=== PATIENT | female | born 1935 | race Caucasian/White ===

== ENCOUNTER 2021-05-21 10:27 | Emergency (ER) | payer MEDICARE, SELFPAY ==
[2021-05-21 10:36] VITALS: BP 129/53; PULSE 101; RESP 20; TEMP 36.9; O2SAT 99
--- NOTE | 2021-05-21 10:48 | ED.SKABFB ---
HPI - Skin/Abscess/Foreign Bdy General Chief complaint: Skin/Abscess/Foreign Body Stated complaint: Rash Time Seen by Provider: 05/21/21 10:50 Source: patient, RN notes reviewed and old records reviewed Mode of arrival: ambulatory Limitations: no limitations History of Present Illness HPI narrative: 85-year-old female who presents to [facility] with 2 weeks duration of rash to arms legs stomach and neck which is severely itching. Patient has used triamcinolone cream to rash for the past 1 week duration with no improvement. Patient denies any new foods any new medications new lotions laundry detergent has not been in the yard working. Patient does take lisinopril denies any difficulty with swallowing or any difficulty with breathing. Rash noted to be be pink raised irregular itchyl with no exudate noted. MD complaint: rash Onset (ago): week(s) (2) Treatments prior to arrival: OTC topical medication Related Data Home Medications Medication Instructions Recorded Confirmed alprazolam 0.25 mg PO HS PRN 05/21/21 05/21/21 cholecalciferol (vitamin D3) 125 mcg PO DAILY 05/21/21 05/21/21 duloxetine 30 mg PO DAILY 05/21/21 05/21/21 lisinopril-hydrochlorothiazide 20 tablet PO DAILY 05/21/21 05/21/21 pravastatin 10 mg PO DAILY 05/21/21 05/21/21 spironolactone 25 mg PO DAILY 05/21/21 05/21/21 Allergies Allergy/AdvReac Type Severity Reaction Status Date / Time No Known Allergies Allergy Unverified 11/15/18 10:05 Review of Systems Review of Systems: CONSTITUTIONAL: Denies fever, chills, or sweats. EYES: Denies visual changes, redness, or discharge. ENT: Denies rhinorrhea, congestion, sore throat, or otalgia. CARDIOVASCULAR: Denies chest pain, palpitations, or edema. RESPIRATORY: Denies cough or dyspnea. GASTROINTESTINAL: Denies abdominal pain, nausea, vomiting, or diarrhea. GENITOURINARY: Denies dysuria or hematuria. SKIN: Positive for rash or itching. MUSCULOSKELETAL: Denies back pain, joint pain, or myalgia. NEUROLOGIC: Denies headache, numbness, or weakness. PSYCHIATRIC: Denies anxiety or depression. All systems reviewed & are unremarkable except as noted in HPI and below PMFSH Past Medical History Medical History (Updated 05/25/21 @ 15:52 by Rosa Garner NP) Cataracts, bilateral Elevated serum cholesterol Fibromyalgia GERD (gastroesophageal reflux disease) Hypertension UTI (urinary tract infection) Surgical History Surgical History (Updated 05/25/21 @ 15:50 by Rosa Garner NP) History of bladder surgery sling History of hysterectomy S/P foot surgery, right Family History Family History (Updated 05/25/21 @ 15:51 by Rosa Garner NP) Father Lung cancer Sibling Lung cancer Mother Kidney failure Social History Social History (Updated 05/25/21 @ 15:52 by Rosa Garner NP) Smoking status: Never smoker Alcohol intake: never Substance use: never Living arrangements: with family Gender identity (if verbalized by the patient): Female Comments At time of signature, agree with nursing past medical, surgical, social and family history. There is no relevant family history pertinent to the presenting complaint Exam Narrative: GENERAL: Well-appearing, well-nourished, and in no acute distress. HEAD: Normocephalic, atraumatic. EYES: PERRLA and EOMI. ENT: Nares clear, no rhinorrhea or epistaxis. Mucous membranes moist.TM's normal, throat pink with no lesions exudates with no tonsil enlargement NECK: Supple.no lymphadenopathy CHEST: Clear to auscultation. No respiratory distress.SAO2 99% on room air HEART: Regular rate and rhythm. No murmur heard. Normal peripheral pulses. ABDOMEN: Soft, nontender, nondistended, normal active bowel sounds. EXTREMITIES: Normal range of motion. No edema. SKIN: Warm, dry, raised pink rash irregular shaped which is itchy to arms legs,neck and stomach which is severely itchy. NEURO: No focal deficits. Alert and oriented x3. Course Vital Signs [place]
== END 2021-05-21 11:10 | disposition home or self-care (01) ==
PROVIDERS: Emergency Provider Registered Nurse; PCP Family Medicine
DX: L25.9 Unspecified contact dermatitis, unspecified cause (principal); E78.00 Pure hypercholesterolemia, unspecified; I10 Essential (primary) hypertension
CPT/HCPCS: 99213; G0463

== ENCOUNTER 2024-08-26 10:39 | Emergency (ER) | payer MEDICARE, SELFPAY ==
--- NOTE | ~2024-08-26 | XR_ITS ---
XR chest 2V 08/26/2024 11:53 Indication: Cough and rhonchi Procedure: 2 view chest Comparison: No prior studies for comparison. Findings: Large hiatal hernia. Cannot exclude gastric volvulus. Small left pleural effusion. Left bas ilar atelectasis. Heart size normal. No edema or pneumothorax. The lungs are hyperinflated which is c onsistent with, but not diagnostic of chronic obstructive pulmonary disease. There is an upper lumbar wedge compression deformity with vertebroplasty change. Impression: 1: Large hiatal hernia. Cannot exclude gastric volvulus. 2: Small left pleural effusion with atelectasis of the left lung base. Reviewed, dictated and finalized at location L. TECH Impression: 1: Large hiatal hernia. Cannot exclude gastric volvulus. 2: Small left pleural effusion with atelectasis of the left lung base.
[2024-08-26 10:46] VITALS: BP 157/49; PULSE 125; RESP 28; TEMP 38.8; O2SAT 96
--- NOTE | 2024-08-26 10:53 | ED_ITS ---
HPI - URI/Sore Throat General Chief Complaint: Upper Respiratory Infection Stated Complaint: Sore Throat/Chest Congestion Time Seen by Provider: 08/26/24 10:40 Source: patient Mode of arrival: ambulatory Limitations: no limitations History of Present Illness HPI Narrative: Patient is a 88-year-old female who presents with cough for 2 days it worsens this morning, congestion, fatigue, fever. Patient also vomited 2 nights ago. Has taken 500 mg of Tylenol twice. Has not taken anything else for symptoms. States she has been relatively healthy. Patient does live alone but does have caregiver come check on her. Related Data Home Medications ?Medication ?Instructions ?Recorded ?Confirmed ?Last Taken ?Type alprazolam 0.25 mg tablet 0.25 mg PO HS PRN Anxiety 05/21/21 05/21/21 Unknown History cholecalciferol (vitamin D3) 125 125 mcg PO DAILY 05/21/21 05/21/21 Unknown History mcg (5,000 unit) capsule duloxetine 30 mg capsule,delayed 30 mg PO DAILY 05/21/21 05/21/21 Unknown History release lisinopril 20 20 tablet PO DAILY 05/21/21 05/21/21 Unknown History mg-hydrochlorothiazide 12.5 mg tablet pravastatin 10 mg tablet 10 mg PO DAILY 05/21/21 05/21/21 Unknown History spironolactone 25 mg tablet 25 mg PO DAILY 05/21/21 05/21/21 Unknown History Allergies Allergy/AdvReac Type Severity Reaction Status Date / Time No Known Allergies Allergy Unverified 11/15/18 10:05 Review of Systems Review of Systems: All systems reviewed & are unremarkable except as noted in HPI and below Constitutional: Constitutional: Denies chills, Reports fatigue, Reports fever(s), Denies headache(s), Denies malaise and Denies weakness Eyes: Eyes: Denies blurry vision, Denies itchy eyes and Denies loss of vision ENT: Denies otalgia, Denies headache(s), Reports nasal congestion, Denies sinus pain and Denies sore throat Cardiovascular: Cardiovascular: Denies chest pain, Denies irregular heart rhythm and Denies dyspnea Respiratory: Respiratory: Reports chest congestion, Reports cough and Denies dyspnea Gastrointestinal: Gastrointestinal: Denies abdominal pain, Denies diarrhea, Denies nausea and Denies vomiting Musculoskeletal: Musculoskeletal: Denies back pain, Denies myalgias and Denies arthralgias Integumentary/Breasts: Skin/Breast: Denies pruritus and Denies rash Neurologic: Denies headache(s), Denies loss of vision and Denies weakness Psychiatric: Psychiatric: Reports no additional psychiatric complaints Endocrine: Endocrine: Denies fatigue Allergic/Immunologic: Allergic/Immunologic: Denies itchy eyes PMFSH Past Medical History Medical History Cataracts, bilateral Fibromyalgia GERD (gastroesophageal reflux disease) UTI (urinary tract infection) Hypertension Elevated serum cholesterol Surgical History Surgical History S/P foot surgery, right History of hysterectomy History of bladder surgery sling Family History Family History Father Lung cancer Sibling Lung cancer Mother Kidney failure Social History Social History Smoking status: Never smoker Alcohol intake: never Substance use: never Living arrangements: with family Gender identity (if verbalized by the patient): Female Comments At time of signature, agree with nursing past medical, surgical, social and family history. There is no relevant family history pertinent to the presenting complaint. Exam Const: General: cooperative, healthy appearing, comfortable, no acute distress and well nourished Nutritional Appearance: well nourished Orientation/consciousness: patient oriented x3 Limitations: no limitations HENMT: Head: normal to inspection, normocephalic and atraumatic Ears: hea ring grossly normal bilaterally, external ears normal, TM's normal bilaterally, EAC's normal and no periauricular adenopathy Face/Nose/Sinus: Normal external nose present, Abnormal mucous membranes and turbinates present erythematous bilateral and diffuse, normal facial exam, sinuses nontender and face symmetric Face and sinus: normal facial exam, sinuses nontender and face symmetric Mouth: Yes Normal oral and palatal mucosa present, Yes lip normal, Yes tongue normal, Yes Normal salivary glands and ducts present, Yes oropharynx normal and Yes moist mucous membranes Teeth and gingiva: dentition normal Throat: posterior oropharynx normal, tonsils normal and uvula midline Eyes: General: appearance normal, both eyes and all related structures Alignment and Position: alignment normal and position normal Periorbital: periorbital findings normal Eyelids: eyelids normal Pupils: Equal, round and reactive pupils present Neck: Neck: normal visual inspection, full ROM, no lymphadenopathy and supple Chest: Chest palpation & inspection: normal inspection of the chest and normal palpation of entire chest wall Resp: Effort & Inspection: normal respiratory effort, able to speak in complete sentences and tachypneic Auscultation: no crackles, no rales, rhonchi throughout and no wheezes Cardio: Rate: tachycardic Rhythm: regular rhythm Heart sounds: S1 normal heart sound present and S2 normal heart sound present GI: Inspection: normal to inspection Skin: General skin exam: normal color and no rashes or lesions noted Neuro: General: patient oriented x3 and moves all extremities Cranial nerves: Yes Equal, round and reactive pupils present Speech: normal speech Gait exam (Neuro): Normal gait present Extrem: General: normal to inspection, full ROM and no edema Psych: Appearance: grossly normal and well kempt Mental Status: mental status grossly normal Speech and movement: Normal speech and movement present Affect: normal affect Attitude: cooperative Thought process: Normal thought process present Course Course Emergency Course: Discharge instructions reviewed with patient, as well as provided in writing per nursing staff. The instructions also include specific and strict return/GO TO THE ER as well as f/u information. All questions have been answered, and the patient deny any further questions with discharge and discharge plan. Portions of this record may have been created with voice recognition software Level of Care: Express Care Visit Vital Signs Vital signs: Vital Signs Temperature 38.8 C H 08/26/24 10:46 Pulse Rate 125 H 08/26/24 10:46 Respiratory Rate 28 H 08/26/24 10:46 Blood Pressure 157/49 H 08/26/24 10:46 Pulse Oximetry 96 08/26/24 10:46 Oxygen Delivery Room Air 08/26/24 10:46 Temperature 37.8 C H 08/26/24 12:44 Pulse Rate 120 H 08/26/24 12:25 Respiratory Rate 18 08/26/24 12:25 Blood Pressure 116/48 L 08/26/24 12:25 Pulse Oximetry 94 08/26/24 12:25 Oxygen Delivery Room Air 08/26/24 12:25 Reviewed MDM - URI/Sore Throat MDM Narrative Medical decision making narrative: Discussed COVID findings with patient and son. Patient has audible mucous congestion sounds in airway. Given 1000 mg of tylenol and a breathing treatment. Patient states she feels much better after breathing treatment, though rhonchi did not improve. Patient was no longer tachypneic and temperature has come down while being observed. X-ray shows no signs of pneumonia. Discussed possible transfer to hospital for observation. Patient is adamant she does not want to go to the emergency department and wants to try treating fever at home and start antiviral medication. Patient is able to maintain a 94 % oxygen and is not actively coughing. Discussed the importance of alternating Tylenol and ibuprofen to keep fever down. Patient states that she has any increased shortness of breath she will go to the emergency department. Son is going to stay with patient for the next 24 hours to monitor and will ensure she goes to the ED if symptoms are worsening. Pt well hydrated appearing, in no respiratory distress, hemodynamically stable. Recommend supportive care. The patient is stable at time of discharge the clinical impression was discussed and the patient was given the opportunity to ask questions, which were addressed as completely as possible given the information available at present. Anticipatory guidance and return to care precautions were discussed and the importance of primary care follow-up was stressed and encouraged. The patient voiced understanding of the plan, indications to return, and the need for follow-up. Differential diagnosis considered: Bronchitis, Polanco virus, strep pharyngitis, allergic rhinitis, upper respiratory tract infection, sinusitis, rhinosinusitis, nasopharyngitis. viral pharyngitis, otitis media, otitis externa, otitis effusion, foreign body, cerumen impaction, viral syndrome, and influenza.? Exam findings show no acute concerns or changes; patient is non-toxic appearing and is in no distress.? Patient is appropriate for outpatient treatment and follow- up.? Medical Records Attestation: I reviewed the patient's medical records. Lab Data Attestation: I reviewed the patient's lab results. Labs: Lab Results 08/26/24 Range/Units 11:04 POC Influenza A Ag Negative (Negative) POC Influenza B Ag Negative (Negative) POC SARS CoV-2 Ag Positive (Negative) Imaging Data Radiologist's impression: XR chest 2V 08/26/2024 11:53 Indication: Cough and rhonchi Procedure: 2 view chest Comparison: No prior studies for comparison. Findings: Large hiatal hernia. Cannot exclude gastric volvulus. Small left pleural effusion. Left basilar atelectasis. Heart size normal. No edema or pneumothorax. The lungs are hyperinflated which is consistent with, but not diagnostic of chronic obstructive pulmonary disease. There is an upper lumbar wedge compression deformity with vertebroplasty change. Impression: 1: Large hiatal hernia. Cannot exclude gastric volvulus. 2: Small left pleural effusion with atelectasis of the left lung base. Discharge Plan Discharge Clinical Impression: COVID Patient Disposition: Home, Self-Care Condition: Stable Instructions: COVID-19 (Coronavirus Disease 2019) (ED) Additional Instructions: Your rapid COVID test was positive today. The following recommendations have been made by the CDC and local Health Departments, regarding COVID-19: -wear a mask for 5 days, as long as your fever free for 24 hours you could return to work -Majority of mild to moderate cases can be treated at home, without hospi talization or prescription medications You do not need a negative test result to return to work/school, assuming the above recommendations have been met and you are not symptomatic. Treating symptoms for mild to moderate cases may include: -Alternate Tylenol and Motrin per package directions for fever or pain. -Antihistamine medication such as Benadryl/Zyrtec at night and Claritin/Wanda during the day can help improve symptoms. -Use Flonase twice a day for 5 days then daily to help reduce the inflammation and dry up your sinuses. -You can also use Sudafed behind the pharmacy counter(12 or 24 hour). Be sure to drink plenty of water with these medications at least 8 ounces with every dose and it is important to drink 8 to 10 glasses of water per day. Water is a natural decongestant Take Motrin alternating with Tylenol for pain and fever alternating every 3 hours. 8 AM: Tylenol 11 AM: Ibuprofen 2 PM: Tylenol 5 PM: Ibuprofen 8 PM: Tylenol 11 PM: Ibuprofen 2 AM: Tylenol 5 AM: Ibuprofen Common Adult Symptoms: Fever/chills Cough Shortness of breath Fatigue, muscle aches Headache Loss of taste/smell Sore throat, congestion, runny nose GI symptoms (nausea, vomiting, diarrhea) Common Pediatric Symptoms Cough Fever GI symptoms (diarrhea, upset stomach, nausea, vomiting) Symptoms may differ in severity however, most cases do not require hospitalization. WHEN TO SEEK ER EVALUATION/TREATMENT: Severe/persistent shortness of breath or difficulty breathing Elevated, persistent fevers without resolution with fever-reducing medications Chest pain Extreme fatigue/lethargy Complications of pre-existing disease Patient Language: Stateless Prescriptions: New (DME) Aerochamber MV Spacer See Rx Instructions .Route Qty: 1 0RF Rx Instructions: As directed albuterol sulfate 90 mcg/actuation HFA aerosol inhaler 2 puff inhalation QID PRN (Reason: shortness of breath or wheezing) Qty: 6.7 0RF Paxlovid 300 mg (150 mg x 2)-100 mg tablets,dose pack See Rx Instructions .ROUTE .COMPLEX Qty: 30 0RF Rx Instructions: take TWO 150 mg tablets of nirmatrelvir with ONE 100 mg tablet of ritonavir twice daily for 5 days No Action alprazolam 0.25 mg tablet 0.25 mg PO HS PRN (Reason: Anxiety) lisinopril-hydrochlorothiazide 20-12.5 mg tablet 20 tablet PO DAILY spironolactone 25 mg tablet 25 mg PO DAILY pravastatin 10 mg tablet 10 mg PO DAILY cholecalciferol (vitamin D3) 125 mcg (5,000 unit) capsule 125 mcg PO DAILY duloxetine 30 mg capsule,delayed release(DR/EC) 30 mg PO DAILY triamcinolone acetonide 0.1 % ointment 1 applic topical BID Qty: 80 0RF Rx Instructions: BID for up to 2 weeks total prednisone 10 mg tablet 10 mg PO DAILY Qty: 42 0RF Rx Instructions: 6 tabs for 2 days then 5 tabs for day 2, then 4 tabs for 2 days, 3 tabs for 2 days, 2 tabs day 2, 1 tab day2 Follow-up/Referrals: Beto,Bobby Davila MD [Primary Care Provider] - 3 Days Time of Disposition: 12:26
[2024-08-26 11:05] LABS: EDCOVIDSCREEN Positive (Negative); EDINFLUASCREEN Negative (Negative); EDINFLUBSCREEN Negative (Negative)
--- OUTSIDE RECORDS SUMMARY | 2024-08-26 11:15 | XMS_ITS | Clinical Summary ---
Author Organization [facility] Address [address] [place] [address] Care Team Providers Care Electrical Logger Name Role Phone Alonzo Francois MD Primary Care Provider [phone] Social History Tobacco Use Types Packs/Day Years Used Date Smoking Tobacco: Never Assessed Comments Unknown Sex and Gender Information Value Date Recorded Sex Assigned at Not on file Legal Sex Female 2:39 PM CDT Gender Identity Not on file Sexual Orientation Not on file Plan of Treatment Health Maintenance Due Date Last Done Comments DEXA Bone Density 1935 Hepatitis C Virus (HCV) Screening 1935 TdaP Immunization 1935 Respiratory Syncytial Virus (RSV) Immunization (Adult) (1 - 1-dose 75+ series) 09/08/2010 Zoster Immunization (2 of 3) 11/29/2012 10/04/2012 Influenza Immunization (#1) 03/06/202403/06, 03/30/2020, 03/30/2020, Additional history exists SARS-COV-2 Immunization ( season) 2024 07/11/2021, 09/26/2020, 09/02/2020 DTaP/Tdap/Td Immunization Discontinued 06/06/2008 Pneumococcal Immunization (50+ years) Completed 05/03/2014, 10/04/2012 Hepatitis B Immunization Aged Out No longer eligible based on patient's age to complete this topic Meningococcal Immunization (ACWY) Aged Out No longer eligible based on patient's age to complete this topic Rotavirus Immunization Aged Out No lo nger eligible based on patient's age to complete this topic Insurance MEDICARE [facility] Care Teams Electrical Logger Relationship Specialty Start Date End Date [place] [address] PCP - General Internal Medicine 05/09/22
--- OUTSIDE RECORDS SUMMARY | 2024-08-26 11:16 | XMS_ITS | Encounter Summary ---
Author Organization [facility] Address [address] [place] [address] Care Team Providers Care Well Servicing Rig Operator Name Role Phone Luther Pérez MD Primary Care Provider + Luther Pérez MD Primary Care Provider + Luther Pérez MD Primary Care Provider + Alonzo Francois MD Primary Care Provider [phone] Luther Pérez MD Primary Care Provider + Alonzo Francois MD Primary Care Provider [phone] Luther Pérez MD Primary Care Provider + Encounter Details Date Type Department Care Team (Late st Contact Info) Description 08/03/2013 Orders Only [facility] Health Information Management [address] [place] [address] Scanning, Provider Social History Tobacco Use Types Packs/Day Years Used Date Smoking Tobacco: Never Alcohol Use Standard Drinks/Week Comments No 0 (1 standard drink = 0.6 oz pur e alcohol) Comments Unknown Sex and Gender Information Value Date Recorded Sex Assigned at Not on file 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 Gender Identity Not on file Sexual Orientation Not on file documented as of this encounter Plan of Treatment Not on file documented as of this encounter Procedures Procedure Name Priority Date/Time Associated Diagnosis Comments GI - RESULT 08/03/2013 SCAN - PATHOLOGY 08/03/2013 documented in this encounter Results * SCAN - PATHOLOGY (08/03/2013) us Provider Scanning Edited Result - Final * GI - RESULT (08/03/2013) Anatomical Region Laterality Modality Other us Provider Scanning Edited Result - Final documented in this encounter Visit Diagnoses Not on filedocumented in this encounter Additional Health Concerns Infection Onset Date Last Indicated Resolved Time COVID: Suspected 12/31/2021 12/31/2021 12/31/2021 4:25 PM CDT MDR gram neg/ESBL Comment:ESBL E.coli urine 01/08/23 01/08/2023 01/08/2023 documented as of this encounter Care Teams Well Servicing Rig Operator Relationship Specialty Start Date End Date Luther Pérez MD [address] [place] [address] PCP - General 10/03/16 03/21/19 Luther Pérez MD [address] [place] [address] [place] [address] PCP - General 09/19/16 10/02/16 Luther Pérez MD [address] [place] [address] [place] [address] PCP - General 04/22/13 09/18/16 Al[place] [address] PCP - General Family Medicine 03/22/19 08/22/22 Luther Pérez MD [address] [place] [address] [place] [address] PCP - General Internal Medicine 08/23/22 09/15/22 Alonzo Francois MD [address] [place] [address] PCP - General Family Medicine 09/16/22 05/19/24 Luther Pérez MD [address] [place] [address] PCP - General Internal Medicine 05/20/24 documented as of this encounter
--- OUTSIDE RECORDS SUMMARY | 2024-08-26 11:16 | XMS_ITS | Referral Summary ---
Author Organization [facility] Address [address] [place] [address] Care Team Providers Care Loan Reviewer Name Role Phone Luther Pérez MD Primary Care Provider + Encounters Date Type Department Care Team Description 06/09/2024 11:45 AM ENOLOGIST Office Visit [facility] Orthopedics and Sports Medicine [address] [facility] [address] [place] [address] Anai Ureña PA Trochanteric bursitis of both hips (Primary Dx) from Last 3 Months Allergies Active Allergy Reactions Criticality Noted Date Comments Erythromycin Other (See comments) Low 08/11/2013 Liver toxicity Reaction: Liver toxicity, , Reaction: Liver toxicity, , Reaction: drug-induced hepatitis, , Ilosone Other (See comments) Low 06/07/2019 Drug induced hepatitis Oxybutynin Nausea Only Low 08/11/2013 Liver toxicity Oxybutynin Chloride Unknown Medications cholecalciferol (VITAMIN D-3) 5,000 unit capsuleIndications :Vitamin D deficiency TAKE ONE CAPSULE BY MOUTH DAILY 90 capsule 1 1 Active pravastatin (PRAVACHOL) 10 mg tabletIndications: Mixed hyperlipidemia TAKE 1 TABLET(10 MG) BY MOUTH DAILY 90 tablet 3 2 Active B2/B6 phos/levomef rachna/mecobal (EB-N3 DR ORAL) Take by mouth Active spironolactone (ALDACTONE) 25 mg tabletIndications: Benign hypertension TAKE 1 TABLET(25 MG) BY MOUTH DAILY 90 tablet 3 2 Active cyanocobalamin (Vitamin B-12) 1,000 mcg/mL injectionIndicatio ns:Other vitamin B12 deficiency anemia ADMINISTER 1 ML(1000 MCG) IN THE MUSCLE EVERY 30 DAYS DIRECTED 1 mL 2 2 Active lisinopril-hydroCH LOROthiazide (ZESTORETIC) 20-12.5 mg per tabletIndications: Benign hypertension TAKE 1 TABLET BY MOUTH DAILY 90 tablet 2 Active ALPRAZolam (XANAX) 0.25 mg tabletIndications: Anxiety state TAKE 1 TABLET BY MOUTH EVERY NIGHT NEEDED FOR ANXIETY OR SLEEP 30 tablet 1 3 Active cyclobenzaprine (FLEXERIL) 5 mg tablet 3 Active clobetasoL (TEMOVATE) 0.05 % ointmentIndication s:Vaginal itching Apply topically 2 (two) times a day 30 g 3 Active omeprazole (PriLOSEC) 40 mg capsule TAKE 1 CAPSULE(40 MG) BY MOUTH DAILY 90 capsule 1 4 Active dicyclomine (BENTYL) 20 mg tablet Take one pill up to 3 times daily as needed for abdominal pain and/or cramping. 90 tablet 4 Active Hospital, Clinic, or Other Facility Administered Medication Ordered Dose Route Frequency Start Date End Date Status cyanocobalamin (Vitamin B-12) injection 1,000 mcgIndications:B12 deficiency 1000 mcg IM Every 30 days 05/15/2020 Active cyanocobalamin (Vitamin B-12) injection 1,000 mcgIndications:Vitamin B12 deficiency 1000 mcg IM Every 30 days 11/28/2021 Active cyanocobalamin (Vitamin B-12) injection 1,000 mcgIndications:Vitamin B12 deficiency 1000 mcg IM Every 30 days 02/17/2022 Active cyanocobalamin (Vitamin B-12) injection 1,000 mcgIndications:Vitamin B12 deficiency 1000 mcg IM Every 30 days 03/17/2022 Active cyanocobalamin (Vitamin B-12) injection 1,000 mcgIndications:Vitamin B12 deficiency 1000 mcg IM Every 30 days 06/18/2022 Active cyanocobalamin (Vitamin B-12) injection 1,000 mcgIndications:Vitamin B12 deficiency 1000 mcg IM Every 30 days 07/22/2022 Active Active Problems Problem Noted Date Diagnosed Date Lower abdominal pain 05/20/2024 Trochanteric bursitis of both hips 12/29/2022 Gastroesophageal reflux disease without esophagi tis 10/13/2022 Trochanteric bursitis of right hip 08/30/2019 Ray's esophagus without dysplasia 06/23/2019 Assessment & Plan (06/23/2019 10:05 AM ENOLOGIST): Last EGD showed small segment Ray's without dysplasia. Spoke with Dr. Caal who says there is now need for f/u due to age and biopsy results. Will continue on Nexium 40mg daily. Irritable bowel syndrome with constipation 03/24 Assessment & Plan (06/23/2019 10:03 AM ENOLOGIST): Patient doing well with fiber gummies. No abdominal pain and having softer stools daily. Continue fiber gummies. Assessment & Plan (03/24/2019 9:13 AM CDT): Has tried Metamucil which causes gas and Miralax causes diarrhea. Will have her try a different kind of fiber (fiber gummies) and slowly increase to recommended dose so body can adjust to more fiber intake. Hiatal hernia 01/17/2019 Assessment & Plan (06/23/2019 10:06 AM ENOLOGIST): Large hiatal hernia. Pt well controlled on Nexium and current diet. Assessment & Plan (03/24/2019 9:13 AM CDT): Large hiatal hernia. Pt is doing well with following GERD diet, taking omeprazole, and eating small meals. Continue this. Assessment & Plan (01/17/2019 4:55 PM CDT): This letter is likely at to her acid reflux disease and symptoms of regurgitation. Considering her her age will continue to maintain and attempt conservative treatment. Dysphagia 01/13/2019 Overview (01/13/2019): Added automatically from request for surgery [id number] Assessment & Plan (06/23/2019 10:05 AM ENOLOGIST): Pt says dysphagia is about the same. Had EGD with dilation several months ago without improvement. Esophagram showed spasms in esophagus. Pt says she sticks with softer foods and eats slowly which helps. We discussed possibly doing EGD with dilation since there was some evidence of narrowing. Pt said she would like to hold off. She will consider if sx worsen. Continue soft foods. Assessment & Plan (03/24/2019 9:14 AM CDT): No issues as long as she eats softer foods and eats slowly. Discussed possible future need for dilation if symptoms worsen. Pt says she will let us know if things get worse. Assessment & Plan (02/23/2019 5:01 PM CDT): Patient is still symptoms. Will the patient again in 1 month and if continue to have symptoms then we will schedule repeat dilatation. I suspect the patient has the upper esophageal sphincter dysfunction and high pressure. Meanwhile will get barium swallow. Assessment & Plan (01/17/2019 4:54 PM CDT): Schedule EGD for further evaluation. Follow-up in 1 month. Will also schedule the barium swallow to evaluate her hiatal hernia of effect on GI motility. Acute cystitis with hematuria 04/27/2017 Assessment & Plan (04/27/2017 10:20 AM CDT): Increasing fluid intake was recommended. Patient was instructed to take antibiotic as directed. Patient was encouraged to take antibiotic with food. I have also recommended daily probiotic, yogurt or capsule, while on the antibiotic. Urine sample will be submitted to the lab for urinalysis with reflex to microscopy and culture. Patient should anticipate a call from me regarding urine culture results within 3 days of having testing completed. Patient has been instructed to contact the office if they have not heard from me with results within this time frame. Healthcare maintenance 01/29/2017 Medication management 01/29/2017 Bipolar 1 disorder with moderate deepak ([facility]) 01/29/2017 Gastroesophageal reflux disease with esophagitis 01/17/2014 Overview (10/11/2016): ULC ESOPHAGUS W/O BLEED Assessment & Plan (06/23/2019 10:04 AM ENOLOGIST): Well controlled on Nexium 40mg daily. Occasional breakthrough symptoms but patient says she takes TUMS and helps relieve this. Continue current regimen. Assessment & Plan (03/24/2019 9:14 AM CDT): On omeprazole daily and well controlled. Assessment & Plan (02/23/2019 4:59 PM CDT): Reflux symptoms controlled with Nexium so will continue the same. Assessment & Plan (01/17/2019 4:56 PM CDT): She remains symptomatic despite taking [id number] Nexium. Will start full dose Nexium prescription daily and follow-up progress in 1 month after the endoscopy. Vitamin D deficiency 11/19/2013 Overview (10/08/2016): VITAMIN D DEFICIENCY NOS Disorder of peripheral nervous system 11/19/2013 Overview (10/09/2016): Peripheral neuropathy Anxiety state 11/19/2013 Overview (10/09/2016): ANXIETY STATE NOS Assessment & Plan (01/16/2017 4:45 PM CDT): Continue to see Psychiatry for condition as they can manage the medications around if this was induced by the Seroquel at that of a common side effect. Will follow up patient here in 2 weeks as already scheduled Continue with Celexa and alprazolam as previously prescribed as well Benign hypertension 11/19/2013 Overview (10/09/2016): BENIGN HYPERTENSION Generalized osteoarthritis 11/19/2013 Overview (10/09/2016): GENERAL OSTEOARTHROSIS Stress incontinence in female 07/11/2010 Overview (10/15/2017): Description: S/P sling 1999, & 2000 Abnormal mammogram 01/24/2009 Immunizations Immunization Administration Dates Next Due Influenza, Quadrivalent, Hig h Dose, Preservative Free, Intrr 03/17/2022,03/30/2020 Influenza, Quadrivalent, Spl it, Preservative Free, Intramuscular 04/13/2019 Influenza, Split 05/07/2012,04/23/2011, 0 Influenza, Trivalent, High D ose, Split, Preservative Free, Intramuscular 05/11/2018,05/10/2018,04/05/2017,05/01,04/18/2015,05/03/2014,05/09/2013 ,05/09/2013 Influenza, Trivalent, IM (MDV) 04/18/2015,2008,04/18/2008 Influenza, Unspecified 08/19/2021(Deferr ed: Patient Refused),03/06/2021(Deferred: Patient Refused),03/30/2020,04/05/2018 Pfizer SARS-CoV-2 Monovalent Vaccination (12+ Yrs) PURPLE 07/11/2021,09/26/2020 Pneumococcal Conjugate PCV 13 05/03/2014 Pneumococcal Polysaccharide PPV23 10/04/2012,07/2012 Td, adsorbed 06/06/2008 ZOSTER LIVE 10/04/2012,10/04/2012 Social History Tobacco Use Types Packs/Day Years Used Date Smoking Tobacco: Never Smokeless Tobacco: Never Tobacco Cessation:Counseling Given: Not Answered Alcohol Use Standard Drinks/Week Comments Yes 0 (1 standard drink = 0.6 oz pur e alcohol) AUDIT-C Answer Date Recorded Q1: How often do you have a drink containing alc ohol? Never 05/20/2024 Average Number of Drinks Not on file 024 Frequency of Binge Drinking Not on file 05/06 PHQ-2 Answer Date Recorded PHQ-2 Total Score (If total score is 3 or more points, staff should administer the PHQ-9) 0 03/17/2022 Comments No Sex and Gender Information Value Date Recorded Sex Assigned at Not on file Legal Sex Female 5:14 PM ENOLOGIST Gender Identity Not on file Sexual Orientation Not on file Last Filed Vital Signs Vital Sign Reading Time Taken Comments Blood Pressure 101/59 06/09/2024 11:44 AM ENOLOGIST Pulse 73 06/09/2024 11:44 AM ENOLOGIST Temperature 36.9 C (98.4 F) 02/11/2023 12:08 PM CDT Respiratory Rate 16 02/11/2023 12:08 PM CDT Oxygen Saturation 99% 05/20/2024 11:57 AM ENOLOGIST Inhaled Oxygen Concentration - - Weight 47 kg (103 lb 9.6 oz) 06/09/2024 11:44 AM ENOLOGIST Height 154.9 cm (5' 1 ) 06/09/2024 11:44 AM ENOLOGIST Body Mass Index 19.58 06/09/2024 11:44 AM ENOLOGIST Plan of Treatment Not on file Procedures Procedure Name Priority Date/Time Associated Diagnosis Comments MI ARTHROCENTESIS ASPIR&/INJ MAJOR JT/BURSA W/O US Routine 06/09/2024 11:45 AM ENOLOGIST Trochanteric bursitis of both hips MI ARTHROCENTESIS ASPIR&/INJ MAJOR JT/BURSA W/O US Routine 06/09/2024 11:45 AM ENOLOGIST Trochanteric bursitis of both hips FIT OCCULT BLOOD, FECAL Routine 10/19/2022 6:00 AM CDT Bilateral lower abdominal cramping Flatulence Bloating SCREENING MAMMOGRAM BILATERAL W SMITA Schedule Routine, Read Routine (OP Routine) 09/01/2022 1:59 PM ENOLOGIST Encounter for screening mammogram for malignant neoplasm of breast HM COLONOSCOPY Routine 07/16/2010 from Last 3 Months or Most Recently Relevant to Health Maintenance Results * MI ARTHROCENTESIS ASPIR&/INJ MAJOR JT/BURSA W/O US (06/09/2024 11:45 AM ENOLOGIST) Narrative Gian Soriano MD - 06/09/2024 11:45 AM ENOLOGIST Anai Ureña PA 06/09/2024 1:07 PM Greater trochanteric bursa injection Performed by: Anai Ureña PA Authorized by: Anai Ureña PA Greater Trochanteric Bursa Injection: Consent Given by: Patient Site marked: the procedure site was marked Timeout: prior to procedure the correct patient, procedure, and site was verified Verbal consent obtained?: Yes Prior to the start of the procedure, verbal verification by the procedure participant(s) confirmed (as applicable): corect patient idenity; correct site/side marked and visible; agreement on the procedure to be done; correct patient positioning; an accurate procedure consent form, relevant images and results correctly labeled and displayed; any safety precautions based on clinical history and/or medication use have been addressed.: Supporting Documentation: Indications: Pain and therapeutic Procedure Details: Site: Left Greater Trochanteric Bursa Prep: patient was prepped and draped in usual sterile fashion Patient position: Sidelying Needle Size: 22 G Ultrasound guidance: No Approach: Lateral Medications: 80 mg methylPREDNISolone acetate 80 mg/mL; 4 mL lidocaine 20 mg/mL (2 %) Patient tolerance: Patient tolerated the procedure well with no immediate complications us Anai DONAHUE IN CLINIC/BEDSIDE ORD ERABLES Final Result * MI ARTHROCENTESIS ASPIR&/INJ MAJOR JT/BURSA W/O US (06/09/2024 11:45 AM ENOLOGIST) Gian Fajardo MD - 06/09/2024 11:45 AM ENOLOGIST Anai Ureña PA 06/09/2024 1:07 PM Greater trochanteric bursa injection Performed by: Anai Ureña PA Authorized by: Anai Ureña PA Greater Trochanteric Bursa Injection: Consent Given by: Patient Site marked: the procedure site was marked Timeout: prior to procedure the correct patient, procedure, and site was verified Verbal consent obtained?: Yes Prior to the start of the procedure, verbal verification by the procedure participant(s) confirmed (as applicable): corect patient idenity; correct site/side marked and visible; agreement on the procedure to be done; correct patient positioning; an accurate procedure consent form, relevant images and results correctly labeled and displayed; any safety precautions based on clinical history and/or medication use have been addressed.: Supporting Documentation: Indications: Pain and therapeutic Procedure Details: Site: Right Greater Trochanteric Bursa Prep: patient was prepped and draped in usual sterile fashion Patient position: Sidelying Needle Size: 22 G Ultrasound guidance: No Approach: Lateral Medications: 80 mg methylPREDNISolone acetate 80 mg/mL; 4 mL lidocaine 20 mg/mL (2 %) Patient tolerance: Patient tolerated the procedure well with no immediate complications Anai DONAHUE IN CLINIC/BEDSIDE ORD ERABLES Final Result * FIT occult blood, fecal (10/19/2022 6:00 AM CDT) FIT occult blood, fecal Negative Negative MARY NIXON ([facility]) Comment: Negative result. This test will not detect upper gastrointestinal bleeding; the HemoQuant test (7920)should be ordered if clinically indicated. Test Performed by: [place] [address] Compound Specialist: Brad Owen M.D. Ph.D.; CLIA# [id number] Collection date/time has been modified to: 06:00:00. Previous collection date/time: 06:00:00. Stool 10/19/2022 6:00 AM CDT 10/21/2022 3:40 PM CDT Nathaniel Gurrola VENDOR SPECIALIST LAB BODY FL UIDS AND STOOLS ORDERABLES Edited Result - Final [facility] ([facility]) [address] [facility] Department [place] [address] * SCREENING MAMMOGRAM BILATERAL W SMITA (09/01/2022 1:59 PM ENOLOGIST) Anatomical Region Laterality Modality Breast Bilateral Mammography 09/01/2022 3:14 PM ENOLOGIST Impressions 09/01/2022 3:14 PM ENOLOGIST There is no mammographic evidence of malignancy. A 1 year screening mammogram is recommended. BI-RADS: 1 - Negative. The patient has been or will be contacted. The patient will be entered into a reminder system with a target due date of 1 year for her next mammogram. Electronically signed by: Brad Jiménez M.D. Narrative 09/01/2022 3:14 PM ENOLOGIST EXAMINATION: SCREENING MAMMOGRAM BILATERAL W SMITA ORDERING HEALTHCARE PROVIDER: DESTINY FRANCOIS HISTORY: Routine screening mammography. COMPARISON: 08/31/2020, 05/09/2019, 05/06/2018, 04/18/2016, 03/19/2015 TECHNIQUE: CC and MLO views of the bilateral breasts were obtained with digital technique using breast tomosynthesis with C view. Computer aided detection was utilized. FINDINGS: DENSITY: There are scattered fibroglandular elements in the bilateral breasts. BREASTS: There are no suspicious masses, suspicious calcifications, or other suspicious findings in either breast. There has been no suspicious interval change. Vascular and other typically benign calcifications are present in both breasts. Destiny Francois MD IMG MAMMO PROCEDURES Lalita l Result * COLONOSCOPY (07/16/2010) Colonoscopy Abnormal Comment:Diverticulosis. Historical Provider HEALTH MAINTENANCE Final Result from Last 3 Months or Most Recently Relevant to Health Maintenance Additional Health Concerns Infection Onset Date Last Indicated MDR gram neg/ESBL Comment:ESBL E.coli urine 01/08/23 01/08/2023 01/08/2023 Insurance MEDICARE [employer] SENIOR SUPPLEMENT MEDICARE [facility] T SENIOR SUPPLEMENT [address] MEDICARE [employer] SENIOR SUPPLEMENT Advance Directives For more information, please contact: [phone] * Full Code (Latest Code Status on File) Date Activated Date Inactivated Comments 02/08/2019 7:45 AM 02/08/2019 2:06 PM * Full Code Date Activated Date Inactivated Comments 02/08/2019 7:44 AM 02/08/2019 7:45 AM Care Teams Loan Reviewer Relationship Specialty Start Date End Date Luther Pérez MD [address] [facility] [place] [address] PCP - General Internal Medicine 05/20/24
--- OUTSIDE RECORDS SUMMARY | 2024-08-26 11:16 | XMS_ITS | Clinical Summary ---
Author Organization [facility] Address [address] [place] [address] Care Team Providers Care Statistician Name Role Phone Luther Pérez MD Primary Care Provider [phone] Source Comments [facility],non-owned Affiliates and Associated Physician Practices is amultiple site organization consisting of ambulatory clinics and hospital sitesin [place], [place], [place] and [place]. This disclosure is being madepursuant to the Care Everywhere program and may not contain all information available regarding this patient. Last updated 18.[facility] Allergies Active Allergy Reactions Criticality Noted Date Comments Gabapentin 04/29/2010 Medications * Be aware that medications may not be up to date on this document. Alwaysverify current medications with the patient. Medication Sig Dispensed Refills Start Date End Date Status escitalopram (LEXAPRO) 10 MG tablet Take 10 mg by mouth daily. Active alprazolam (XANAX) 0.25 MG tablet Take 0.25 mg by mouth every 6 hours as needed. Active vitamin D, ergocalciferol, (DRISDOL) 64626 UNIT capsule Take 50,000 Units by mouth every 30 days. Active lisinopril-hydrochloro thiazide (PRINZIDE; ZESTORETIC) 20-12.5 MG tablet Take 1 Tab by mouth daily. Active fish oil/omega-3 fatty acids (OMEGA 3) 1000 MG capsule Take 1,000 mg by mouth 3 times daily with meals. Active Niacin 500 MG CPCR Take by mouth. Ac tive aspirin 81 MG tablet Take 81 mg by mouth daily. Active Omeprazole 20 MG TBEC Take 20 mg by mouth daily before breakfast. Active Active Problems Problem Noted Date Diagnosed Date OA (osteoarthritis) 04/17/2010 Overview (04/17/2010): 04/17/2010 hands Fibromyalgia 04/17/2010 Overview (04/17/2010): Long standing Fibromyalgia diagnosis insmonia Trochanteric bursitis 04/17/2010 Overview (04/17/2010): 04/17/2010 left Insomnia 04/17/2010 Social History Tobacco Use Types Packs/Day Years Used Date Smoking Tobacco: Never Alcohol Use Standard Drinks/Week Comments Yes 0 (1 standard drink = 0.6 oz pur e alcohol) occ Sex and Gender Information Value Date Recorded Sex Assigned at Not on file Gender Identity Not on file Sexual Orientation Not on file Last Filed Vital Signs Vital Sign Reading Time Taken Comments Blood Pressure 117/34 04/03/2014 12:47 PM CDT Pulse 77 04/03/2014 12:47 PM CDT Temperature 37.2 C (99 F) 04/03/2014 12:47 PM CDT Respiratory Rate 16 04/03/2014 12:47 PM CDT Oxygen Saturation 93% 04/03/2014 12:47 PM CDT Inhaled Oxygen Concentration - - Weight 61.2 kg (135 lb) 04/03/2014 8:23 AM CDT Height 158.8 cm (5' 2.5 ) 04/03/2014 8:23 AM CDT Body Mass Index 24.3 04/03/2014 8:23 AM CDT Plan of Treatment Health Maintenance Due Date Last Done Comments BONE DENSITY TESTING 1935 DTAP/TDAP/TD VACCINES (1 - Tdap) 09/08/1954 PNEUMOCOCCAL VACCINE 50+ (1 of 1 - PCV) 09/08/1985 ZOSTER VACCINE (1 of 2) 09/08/1985 Respiratory Syncytial Virus (RSV) Vaccine Pt: or over 60 yrs (1 - 1-dose 75+ series) 09/08/2010 COVID-19 VACCINE ( - 2023-2 5 season) 2024 INFLUENZA VACCINE (#1) 2024 DEPRESSION SCREENING 07/06/2024 HEPATITIS B VACCINE Aged Out No longe r eligible based on patient's age to complete this topic HIB VACCINE Aged Out No longer eligi ble based on patient's age to complete this topic HPV VACCINE Aged Out No longer eligi ble based on patient's age to complete this topic MENINGOCOCCAL (Group B) VACCINE Aged Out No longer eligible based on patient's age to complete this topic MENINGOCOCCAL VACCINE Aged Out No glenn liz eligible based on patient's age to complete this topic Care Teams Statistician Relationship Specialty Start Date End Date Luther Pérez MD PCP - General 04/17/10
--- OUTSIDE RECORDS SUMMARY | 2024-08-26 11:16 | XMS_ITS | Encounter Summary ---
Author Organization [facility] Address [address] [address] Care Team Providers Care Service Center Supervisor Name Role Phone Luther Pérez MD Primary Care Provider + Luther Pérez MD Primary Care Provider + Luther Pérez MD Primary Care Provider + Luther Pérez MD Primary Care Provider + Alonzo Francois MD Primary Care Provider [phone] Luther Pérez MD Primary Care Provider + Alonzo Francois MD Primary Care Provider [phone] Luther Pérez MD Primary Care Provider + Encounter Details Date Type Department Care Team (Late st Contact Info) Description 07/16/2010 Orders Only [facility] Health Information Management [address] [place] [address] Scanning, Provider Social History Tobacco Use Types Packs/Day Years Used Date Smoking Tobacco: Never Assessed Comments Unknown Sex and Gender Information Value Date Recorded Sex Assigned at Not on file Legal Sex Female 5:14 PM CONCRETE LABORER Gender Identity Not on file Sexual Orientation Not on file documented as of this encounter Plan of Treatment Not on file documented as of this encounter Procedures Procedure Name Priority Date/Time Associated Diagnosis Comments SCAN - PATHOLOGY 07/16/2010 documented in this encounter Results * SCAN - PATHOLOGY (07/16/2010) us Provider Scanning Edited Result - Final documented in this encounter Visit Diagnoses Not on filedocumented in this encounter Additional Health Concerns Infection Onset Date Last Indicated Resolved Time COVID: Suspected 12/31/2021 12/31/2021 12/31/2021 4:25 PM CDT MDR gram neg/ESBL Comment:ESBL E.coli urine 01/08/23 01/08/2023 01/08/2023 documented as of this encounter Care Teams Service Center Supervisor Relationship Specialty Start Date End Date Luther Pérez MD [address] [place] [address] [place] [address] PCP - General 10/03/16 03/21/19 Luther Pérez MD [address] [place] [address] [place] [address] PCP - General 09/19/16 10/02/16 Luther Pérez MD [address] [place] [address] [place] [address] PCP - General 04/22/13 09/18/16 Luther Pérez MD [address] [place] [address] [place] [address] PCP - General 07/09/07 04/21/13 Alonzo Francois MD [address] [place] [address] PCP - General Family Medicine 03/22/19 08/22/22 Luther Pérez MD [address] [place] [address] [place] [address] PCP - General Internal Medicine 08/23/22 09/15/22 Alonzo Francois MD [address] [place] [address] PCP - General Family Medicine 09/16/22 05/19/24 Luther Pérez MD [address] [facility] [place] [address] PCP - General Internal Medicine 05/20/24 documented as of this encounter
--- OUTSIDE RECORDS SUMMARY | 2024-08-26 11:16 | XMS_ITS | Referral Summary ---
Author Organization [facility] [employer] Address [address] [place] [address] Care Team Providers Care Jewel Gauger Name Role Phone Luther Pérez MD Primary Care Provider [phone] Source Comments [facility],non-owned Affiliates and Associated Physician Practices is amultiple site organization consisting of ambulatory clinics and hospital sitesin [place], [place], [place] and [place]. This disclosure is being madepursuant to the Care Everywhere program and may not contain all information available regarding this patient. Last updated 18.[facility] [employer] Allergies Active Allergy Reactions Criticality Noted Date [...] as needed. Active vitamin D, ergocalciferol, (DRISDOL) 80085 UNIT capsule Take 50,000 Units by mouth [...] 04/03/2014 8:23 AM CDT Plan of Treatment Not on file Administered Medications Care Teams Jewel Gauger Relationship Specialty Start Date End Date Luther Pérez MD PCP - General 04/17/10
--- OUTSIDE RECORDS SUMMARY | 2024-08-26 11:16 | XMS_ITS | Clinical Summary ---
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 Spoke with Dr. Caal who says there is now need for f/u due to age and biopsy results. Will continue on Nexium 40mg daily. Irritable bowel syndrome with constipation 03/24 Assessment & Plan (06/23/2019 10:03 AM OVERCOIL STEPPER): Patient doing well with fiber gummies. No [...] 01/17/2019 Assessment & Plan (06/23/2019 10:06 AM OVERCOIL STEPPER): Large hiatal hernia. Pt well controlled on [...] (01/13/2019): Added automatically from request for surgery [id number] Assessment & Plan (06/23/2019 10:05 AM OVERCOIL STEPPER): Pt says dysphagia is about the same. [...] 01/29/2017 Bipolar 1 disorder with moderate deepak ([facility]) 01/29/2017 Gastroesophageal reflux disease with esophagitis 01/17/2014 Overview (10/11/2016): ULC ESOPHAGUS W/O BLEED Assessment & Plan (06/23/2019 10:04 AM OVERCOIL STEPPER): Well controlled on Nexium 40mg daily. Occasional [...] PM CDT): She remains symptomatic despite taking [id number] Nexium. Will start full dose Nexium prescription [...] female 07/11/2010 Overview (10/15/2017): Description: S/P sling 2000, & 2000 Abnormal mammogram 01/24/2009 Encounters Date Type Department Care Team Description 06/09/2024 11:45 AM OVERCOIL STEPPER Office Visit [facility] Orthopedics and Sports Medicine [address] [place] [address] [address] [address] Anai Ureña PA Trochanteric bursitis of both hips (Primary Dx) from Last 3 Months Immunizations Immunization Administration Dates Next Due Influenza, [...] 10/04/2012,07/2012 Td, adsorbed 06/06/2008 ZOSTER LIVE 10/04/2012,10/04/2012 Surgical History Surgery Date Site/Laterality Comments OTHER SURGICAL HISTORY TVT sling HYSTERECTOMY 07/06/1975 - 07/05/1976 Hysterectomy OTHER SURGICAL HISTORY 07/06/1999 - 07/05/2000 Urinary incontinence: bladder plication 1999, 2000 HYSTERECTOMY Hysterectomy UPPER GASTROINTESTINAL ENDOSCOPY COLONOSCOPY 07/16/2010 POLYPECTOMY FOOT SURGERY 07/06/2013 - 07/05/2014 EYE SURGERY CATARACTS BREAST EXCISIONAL BIOPSY 07/06/2004 - 07/05/2005 Right benign surgical bx Medical History Medical History Date Comments Hx 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 Hx Other Medical 02-GI Hx Other Medical 03-UROLOGIST Hx Other Medical hawley's Hx Other Medical OA Hx Other Medical cataracts Hx Other Medical neuropathy Hx Other Medical ALBERT Hx Other Medical 04-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 Hx Other Medical HH Hx Other Medical trochanter burs itis Hx Other Medical sebaceous carci noma Hx Other Medical 2005 hawley's esoph herbie Hypertension Hypertension Malignant neoplasm of skin Cance r, skin Arthritis Arthritis Hx Other Medical Urinary inconti nence Fibrositis Fibromyalgia Hx Other Medical barretts esopho min Anemia Anemia Osteoarthritis Osteoarthritis Hx Other Medical tvt slings Hx Other Medical Right Foot Surg zac Hx Other Medical Cataract Remova l Hx Other Medical eyelid reductio n Medication monitoring encounter GERD (gastroesophageal reflux disease) Diverticulosis Hawley esophagus PONV (postoperative nausea and vomiting) Peripheral neuropathy Gastric reflux Hiatal hernia Family History Medical History Relation Name Comments Lung cancer Father Cancer -lung; / Cancer, lung; Hypertension Mother Hypertension; / Hypertension; Other Mother CKD - Dialysis; Cancer Other 1 Kidney disease Other 1 Mental illness Other 1 Other Other 1 No family histo ry of Alzheimer's Disease; Other Other 2 No family histo ry of Coronary artery disease; Other Other 3 No family histo ry of Coronary artery disease, premature; Other Other 4 No family histo ry of Diabetes mellitus; Lung cancer Other 5 Family history of Cancer, lung; Hypertension Other 6 Family history of Hypertension; Breast cancer Neg Hx Ovarian cancer Neg Hx Thyroid cancer Neg Hx Relation Name Status Comments Father (Age 60) Mother (Age 72) Other 1 Other 2 Other 3 Other 4 Other 5 Other 6 Social History Tobacco Use Types Packs/Day Years [...] on file Legal Sex Female 5:14 PM OVERCOIL STEPPER Gender Identity Not on file Sexual Orientation Not on file Obstetrics History Para Term AB IAB SAB Ectopic Multiple Livin g Live Births 2 2 2 Date Outcome GA Total Labor Labor/2nd/3rd Weight Sex Type Anes PTL Rossy A1 A5 Name Clin Term Term Last Filed Vital Signs Vital Sign Reading Time Taken Comments Blood Pressure 101/59 06/09/2024 11:44 AM OVERCOIL STEPPER Pulse 73 06/09/2024 11:44 AM OVERCOIL STEPPER Temperature 36.9 C (98.4 F) 02/11/2023 12:08 PM CDT Respiratory Rate 16 02/11/2023 12:08 PM CDT Oxygen Saturation 99% 05/20/2024 11:57 AM OVERCOIL STEPPER Inhaled Oxygen Concentration - - Weight 47 kg (103 lb 9.6 oz) 06/09/2024 11:44 AM OVERCOIL STEPPER Height 154.9 cm (5' 1 ) 06/09/2024 11:44 AM OVERCOIL STEPPER Body Mass Index 19.58 06/09/2024 11:44 AM OVERCOIL STEPPER Plan of Treatment Health Maintenance Due Date Last Done Comments Hepatitis B Screening 09/08/1953 DTaP/Tdap/Td Vaccine (1 - Tdap) 06/07/2008 8 Zoster Vaccine (2 of 3) 11/29/2012 10/04/2012, 10/04 Colon Cancer Screening-Colonoscopy 07/16/2020 07/16/2010, 07/16/2010 Depression Screening 03/17/2023 03/17/2022, 08/19/2021, 01/23/2021, Additional history exists Fall Risk Assessment 03/17/2023 03/17/2022, 08/19/2021, 01/23/2021, Additional history exists Well Visit 65+ 03/17/2023 03/17/2022, 01/23/2021 Breast Cancer Screening-Mammogram 09/01/2023 09/01/2022, 08/31/2020, 05/09/2019, Additional history exists Covid-19 Vaccine (3 - 2023-2 5 season) 2024 07/11/2021, 09/26/2020 Influenza Vaccine (#1) 2024 2, 03/30/2020, 03/30/2020, Additional history exists Colon Cancer Screening-CT Colonography Discontinued 07/16/2010, 07/16/2010 Colon Cancer Screening-DNA Stool Discontinued 07/16/19 11, 07/16/2010 Colon Cancer Screening-Sigmoidoscopy Discontinued 07/16/2010, 07/16/2010 Pneumococcal vaccine 65+ Completed 014, 10/04/2012, 10/04/2012 Colon Cancer Screening-FIT Discontinued 10/19, 07/16/2010, 07/16/2010 Procedures Procedure Name Priority Date/Time Associated Diagnosis Comments CT ARTHROCENTESIS ASPIR&/INJ MAJOR JT/BURSA W/O US Routine 06/09/2024 11:45 AM OVERCOIL STEPPER Trochanteric bursitis of both hips CT ARTHROCENTESIS ASPIR&/INJ MAJOR JT/BURSA W/O US Routine 06/09/2024 11:45 AM OVERCOIL STEPPER Trochanteric bursitis of both hips FIT OCCULT BLOOD, FECAL Routine 10/19/2022 6:00 AM CDT Bilateral lower abdominal cramping Flatulence Bloating SCREENING MAMMOGRAM BILATERAL W SMITA Schedule Routine, Read Routine (OP Routine) 09/01/2022 1:59 PM OVERCOIL STEPPER Encounter for screening mammogram for malignant neoplasm of breast HM COLONOSCOPY Routine 07/16/2010 from Last 3 Months or Most Recently Relevant to Health Maintenance Results * CT ARTHROCENTESIS ASPIR&/INJ MAJOR JT/BURSA W/O US (06/09/2024 11:45 AM OVERCOIL STEPPER) Narrative Gian Soriano MD - 06/09/2024 11:45 AM OVERCOIL STEPPER Anai Ureña PA 06/09/2024 1:07 PM Greater [...] IN CLINIC/BEDSIDE ORD ERABLES Final Result * CT ARTHROCENTESIS ASPIR&/INJ MAJOR JT/BURSA W/O US (06/09/2024 11:45 AM OVERCOIL STEPPER) Narrative Gian Soriano MD - 06/09/2024 11:45 AM OVERCOIL STEPPER Anai Ureña PA 06/09/2024 1:07 PM Greater [...] FIT occult blood, fecal Negative Negative [facility] (EDY) Comment: Negative result. This test will not detect upper gastrointestinal bleeding; the HemoQuant test ([id number])should be ordered if clinically indicated. Test Performed by: [address] [address] Ekg Tech: Brad Owen M.D. Ph.D.; CLIA# [id number] Collection date/time has been modified to: 06:00:00. Previous collection date/time: 06:00:00. Stool 10/19/2022 6:00 AM CDT 10/21/2022 3:40 PM CDT Nathaniel Gurrola SURGERY SCHEDULING COORDINATOR LAB BODY FL UIDS AND STOOLS ORDERABLES Edited Result - Final MARY NIXON (CROWDER) [address] [facility] [place] [address] * SCREENING MAMMOGRAM BILATERAL W SMITA (09/01/2022 1:59 PM OVERCOIL STEPPER) Anatomical Region Laterality Modality Breast Bilateral Mammography 09/01/2022 3:14 PM OVERCOIL STEPPER Impressions 09/01/2022 3:14 PM OVERCOIL STEPPER There is no mammographic evidence of malignancy. A 1 year screening mammogram is recommended. BI-RADS: 1 - Negative. The patient has been or will be contacted. The patient will be entered into a reminder system with a target due date of 1 year for her next mammogram. Electronically signed by: Brad Jiménez M.D. Narrative 09/01/2022 3:14 PM OVERCOIL STEPPER EXAMINATION: SCREENING MAMMOGRAM BILATERAL W SMITA ORDERING [...] benign calcifications are present in both breasts. us Destiny Francois MD IMG MAMMO PROCEDURES Lalita l Result * HM COLONOSCOPY (07/16/2010) Colonoscopy Abnormal Comment:Diverticulosis. us Historical Provider HEALTH MAINTENANCE Final Result from Last 3 Months or Most Recently Relevant to Health Maintenance Additional Health Concerns Infection Onset Date Last Indicated MDR gram neg/ESBL Comment:ESBL E.coli urine 01/08/23 01/08/2023 01/08/2023 Insurance MEDICARE [facility] MEDICARE [facility] AETNA SENIOR SUPPLEMENT AETNA My Info MEDICARE AETNA SENIOR SUPPLEMENT Advance Directives For more information, please contact: [phone] * Full Code (Latest Code Status on File) Date Activated Date Inactivated Comments 02/08/2019 7:45 AM 02/08/2019 2:06 PM * Full Code Date Activated Date Inactivated Comments 02/08/2019 7:44 AM 02/08/2019 7:45 AM Care Teams Legal Receptionist Relationship Specialty Start Date End Date Luther Pérez MD [address] [place] [address] PCP - General Internal Medicine 05/20/24
--- OUTSIDE RECORDS SUMMARY | 2024-08-26 11:16 | XMS_ITS | Patient Health Summary ---
Author Organization [facility] Address [address] [place] [address] Care Team Providers Care Dry Wall Nailer Name Role Phone Luther Pérez MD Primary Care Provider [phone] Note from [facility],non-owned Affiliates and Associated Physician Practices is amultiple site organization consisting of ambulatory clinics and hospital sitesin [place], [place], [place] and [place]. This disclosure is being madepursuant to the Care Everywhere program and may not contain all information available regarding this patient. Last updated 18.[facility] Allergies * Gabapentin Medications * Be aware that medications may not be up to date on this document. Alwaysverify current medications with the patient. * escitalopram (LEXAPRO) 10 MG tablet Take 10 mg by mouth daily. * alprazolam (XANAX) 0.25 MG tablet Take 0.25 mg by mouth every 6 hours as needed. * vitamin D, ergocalciferol, (DRISDOL) 46221 UNIT capsule Take 50,000 Units by mouth every 30 days. * lisinopril-hydrochlorothiazide (PRINZIDE; ZESTORETIC) 20-12.5 MG tablet Take 1 Tab by mouth daily. * fish oil/omega-3 fatty acids (OMEGA 3) 1000 MG capsule Take 1,000 mg by mouth 3 times daily with meals. * Niacin 500 MG CPCR Take by mouth. * aspirin 81 MG tablet Take 81 mg by mouth daily. * Omeprazole 20 MG TBEC Take 20 mg by mouth daily before breakfast. Active Problems Problem Noted Date Diagnosed Date OA (osteoarthritis) 04/17/2010 Fibromyalgia 04/17/2010 Trochanteric bursitis 04/17/2010 Insomnia 04/17/2010 Social History Tobacco Use Types [...] Mass Index 24.3 04/03/2014 8:23 AM CDT Procedures * LAB HISTORICAL RESULTS-ONBASE(Performed 02/24/2014) * LAB RESULTS ORDER(Performed 04/09/2010) * LAB RESULTS ORDER(Performed 02/13/2010) * PATHOLOGY/GENETICS HISTORICAL-ONBASE(Performed 07/02/1995) Results * LAB HISTORICAL RESULTS-ONBASE (02/24/2014) 02/24/2014 Narrative [facility] - 02/27/2014 12:02 PM CDT Historical Provider LAB - CHEMISTRY O MARIO [facility] [address] [place] [address], [facility] * XR HANDS BILAT SINGLE VIEW (04/22/2010 4:46 PM CDT) Devin Michel MD DIAGNOSTIC IMAGING O RDERAJULIETH * XR HIP 2+ VW LEFT (04/22/2010 4:46 PM CDT) Devin Michel MD DIAGNOSTIC IMAGING O RDERABLES * LAB RESULTS ORDER (04/09/2010) Only the most recent of2 resultswithin the time period is included. Luther Pérez MD LAB - THERAPEUTIC DRUG MONITORING ORDERABLES * PATHOLOGY/GENETICS HISTORICAL-ONBASE (07/02/1995) 07/02/1995 Narrative [facility] - 11/11/2013 11:40 AM CDT Historical Provider LAB - CHEMISTRY O RDERABLES Performing Organization Address City/State/[facility] Co de Phone Number [facility] [address] Care Teams Dry Wall Nailer Relationship Specialty Start Date End Date Luther Pérez MD PCP - General 04/17/10
--- OUTSIDE RECORDS SUMMARY | 2024-08-26 11:16 | XMS_ITS | Encounter Summary ---
Author Organization [facility] Address [address] [place] [address] Care Team Providers Care Strip Feeder Name Role Phone Luther Pérez MD Primary Care Provider + Luther Pérez MD Primary Care Provider + Luther Pérez MD Primary Care Provider + Alonzo Francois MD Primary Care Provider [phone] Luther Pérez MD Primary Care Provider + Alonzo Francois MD Primary Care Provider [phone] Luther Pérez MD Primary Care Provider + Encounter Details Date Type Department Care Team (Late st Contact Info) Description 10/28/2013 Orders Only [facility] [address] [place] [address] Scanning, Provider Social History Tobacco Use Types Packs/Day Years Used Date Smoking Tobacco: Never Alcohol Use Standard Drinks/Week Comments No 0 (1 standard drink = 0.6 oz pur e alcohol) Comments Unknown Sex and Gender Information Value Date Recorded Sex Assigned at Not on file Legal Sex Female 5:14 PM IT CONSULTANT Gender Identity Not on file Sexual Orientation Not on file documented as of this encounter Plan of Treatment Not on file documented as of this encounter Procedures Procedure Name Priority Date/Time Associated Diagnosis Comments SCAN - PATHOLOGY 10/28/2013 documented in this encounter Results * SCAN - PATHOLOGY (10/28/2013) us Provider Scanning Edited Result - Final documented in this encounter Visit Diagnoses Not on filedocumented in this encounter Additional Health Concerns Infection Onset Date Last Indicated Resolved Time COVID: Suspected 12/31/2021 12/31/2021 12/31/2021 4:25 PM CDT MDR gram neg/ESBL Comment:ESBL E.coli urine 01/08/23 01/08/2023 01/08/2023 documented as of this encounter Care Teams Strip Feeder Relationship Specialty Start Date End Date Luther Pérez MD [address] [place] [address] [place] [address] PCP - General 10/03/16 03/21/19 Luther Pérez MD [address] [place] [address] [address] [address] PCP - General 09/19/16 10/02/16 Luther Pérez MD [address] [place] [address] [place] [address] PCP - General 04/22/13 09/18/16 Alonzo Francois MD [address] [place] [address] PCP - General Family Medicine 03/22/19 08/22/22 Luther Pérez MD [address] [place] [address] [address] [address] PCP - General Internal Medicine 08/23/22 09/15/22 Alonzo Francois MD [address] [place] [address] PCP - General Family Medicine 09/16/22 05/19/24 Luther Pérez MD [address] [place] [address] PCP - General Internal Medicine 05/20/24 documented as of this encounter
[2024-08-26 11:28] VITALS: TEMP 38.8
[2024-08-26] MEDS: ACETAMINOPHEN 500 MG TABLET 1000 MG PO (11:28)
[2024-08-26] MEDS: IPRATROPIUM 0.5 MG/ALBUTEROL SULFATE 2.5 MG AMPUL.NEB 3 ML INHALATION (11:28)
[2024-08-26 11:41] VITALS: PULSE 120; RESP 22; O2SAT 92
[2024-08-26 12:25] VITALS: BP 116/48; PULSE 120; RESP 18; TEMP 37.8; O2SAT 94
[2024-08-26 12:44] VITALS: TEMP 37.8
== END 2024-08-26 12:35 | disposition home or self-care (01) ==
PROVIDERS: Emergency Provider Nurse Practitioner Family; PCP Internal Medicine
DX: U07.1 COVID-19 (principal); I10 Essential (primary) hypertension
CPT/HCPCS: 71046; 87426; 87804; 99213; A9270; G0463

== ENCOUNTER 2024-09-04 15:09 | Emergency (ER) | payer MEDICARE, SELFPAY ==
[2024-09-04 15:16] VITALS: BP 131/59; PULSE 116; RESP 20; TEMP 37.3; O2SAT 96
--- NOTE | 2024-09-04 15:40 | ED.NAVMDI ---
HPI - Nausea/Vomiting/Diarrhea General Chief complaint: Nausea/Vomiting/Diarrhea Stated complaint: Diarrhea/Vomiting Time Seen by Provider: 09/04/24 15:40 Source: patient and RN notes reviewed Mode of arrival: ambulatory Limitations: no limitations History of Present Illness HPI Narrative: 88-year-old female presents concern for nausea, vomiting, diarrhea for 3 days. Reports she is recovering from COVID and took PACs Lopid, she finished it 2 days ago. She is trying to eat Jell-O and drink some fluids. She denies fever, body aches, chills, sweats, abdominal pain, back pain. She denies dysuria, frequency, urgency MD elicited complaint: nausea, vomiting and diarrhea Related Data Home Medications ?Medication ?Instructions ?Recorded ?Confirmed ?Last Taken ?Type alprazolam 0.25 mg tablet 0.25 mg PO HS PRN Anxiety 05/21/21 05/21/21 Unknown History cholecalciferol (vitamin D3) 125 125 mcg PO DAILY 05/21/21 05/21/21 Unknown History mcg (5,000 unit) capsule duloxetine 30 mg capsule,delayed 30 mg PO DAILY 05/21/21 05/21/21 Unknown History release lisinopril 20 20 tablet PO DAILY 05/21/21 05/21/21 Unknown History mg-hydrochlorothiazide 12.5 mg tablet pravastatin 10 mg tablet 10 mg PO DAILY 05/21/21 05/21/21 Unknown History cyanocobalamin (vitamin B-12) mcg 09/04/24 Unknown History 1,000 mcg/mL injection solution omeprazole 40 mg capsule,delayed mg 09/04/24 Unknown History release Allergies Allergy/AdvReac Type Severity Reaction Status Date / Time No Known Allergies Allergy Verified 09/04/24 15:15 Review of Systems Review of Systems: CONSTITUTIONAL: Reports malaise. Denies chills, sweats, or fever. ENT: Denies rhinorrhea, congestion, sinus pain, otalgia or sore throat. CARDIOVASCULAR: Denies chest pain, palpitations, or edema. RESPIRATORY: Denies cough or dyspnea. GASTROINTESTINAL: Denies abdominal pain. Reports nausea, vomiting, diarrhea. Denies bloody, or mucous stools. GENITOURINARY: Denies dysuria or hematuria. MUSCULOSKELETAL: Denies myalgia. NEUROLOGIC: Denies headache. All systems reviewed & are unremarkable except as noted in HPI and below PMFSH Past Medical History Medical History Cataracts, bilateral Fibromyalgia GERD (gastroesophageal reflux disease) UTI (urinary tract infection) Hypertension Elevated serum cholesterol Surgical History Surgical History S/P foot surgery, right History of hysterectomy History of bladder surgery sling Family History Family History Father Lung cancer Sibling Lung cancer Mother Kidney failure Social History Social History Smoking status: Never smoker Alcohol intake: never Substance use: never Living arrangements: with family Gender identity (if verbalized by the patient): Female Comments At time of signature, agree with nursing past medical, surgical, social and family history. There is no relevant family history pertinent to the presenting complaint Exam Narrative: GENERAL: Nontoxic-appearing, well-nourished, and in no acute distress. HEAD: Normocephalic, atraumatic. EYES: PERRLA, conjunctivae clear, and EOMI. ENT: Nares clear, turbinates pink, no rhinorrhea or epistaxis. Mucous membranes moist. Oropharynx without edema, erythema, or lesions. Tonsils not enlarged and without exudate. NECK: Supple. No lymphadenopathy CHEST: Speaks in full sentences. No respiratory distress. HEART: Regular rate and rhythm. ABDOMEN: Soft, flat, nondistended, nontender. Bowel sounds present in all four quadrants. SKIN: Warm, dry, no rash. NEURO: Alert and oriented x3. PSYCH: Normal mood and affect Course Course Emergency Course: I discussed exam findings with patient. I discussed are limited diagnostic capability and offered transfer to emergency room for further evaluation and possible IV fluids. Patient and her daughter denied at this time. Daughter reports she will monitor patient and if she cannot keep fluids down after taking Zofran they will take her to the emergency room. Patient and her daughter is aware of, understands and agrees to treatment plan. Anticipatory guidance given. Patient agrees to follow-up as directed and is aware of reasons to seek care at the emergency department. Portions of this record may have been created with voice recognition software Level of Care: Express Care Visit Vital Signs Vital signs: Vital Signs Temperature 99.1 F 09/04/24 15:16 Pulse Rate 116 H 09/04/24 15:16 Respiratory Rate 20 09/04/24 15:16 Blood Pressure 131/59 L 09/04/24 15:16 Pulse Oximetry 96 09/04/24 15:16 Oxygen Delivery Room Air 09/04/24 15:16 Temperature 99.1 F 09/04/24 15:16 Pulse Rate 116 H 09/04/24 15:16 Respiratory Rate 20 09/04/24 15:16 Blood Pressure 131/59 L 09/04/24 15:16 Pulse Oximetry 96 09/04/24 15:16 Oxygen Delivery Room Air 09/04/24 15:16 Reviewed. MDM - Nausea/Vomiting/Diarrhea MDM Narrative Medical decision making narrative: I evaluated this patient in the express care. History is obtained from patient who is an independent historian and physical exam was performed.? Available medical records were reviewed. ? Exam findings show no acute concerns or changes; patient is non-toxic appearing and is in no distress. ? Differential diagnosis and treatment plan were discussed with the patient. Patient agrees with discussion and after shared medical decision making agrees with plan of care. All questions were answered to the patient's satisfaction. Patient is appropriate for outpatient treatment and follow-up. Critical Care Time Critical Care Time Critical Care Time: No Discharge Plan Discharge Clinical Impression: Nausea vomiting and diarrhea Patient Disposition: Home, Self-Care Condition: Stable Instructions: Acute Nausea and Vomiting (ED) Additional Instructions: Stay hydrated. Take small sips of fluid containing electrolytes frequently. You should go to the hospital if you experience persistent nausea and vomiting that does not resolve and does not allow you to tolerate any food or fluids, persistent fevers for greater than 2-3 more days, increasing abdominal pain that persists despite medications, persistent diarrhea, dizziness, syncope (fainting), or for any other concerns. Patient Language: Algerian Prescriptions: New ondansetron 4 mg tablet,disintegrating 4 mg PO Q8H PRN (Reason: nausea and vomiting) Qty: 10 0RF No Action alprazolam 0.25 mg tablet 0.25 mg PO HS PRN (Reason: Anxiety) lisinopril-hydrochlorothiazide 20-12.5 mg tablet 20 tablet PO DAILY pravastatin 10 mg tablet 10 mg PO DAILY cholecalciferol (vitamin D3) 125 mcg (5,000 unit) capsule 125 mcg PO DAILY duloxetine 30 mg capsule,delayed release(DR/EC) 30 mg PO DAILY (DME) Aerochamber MV Spacer See Rx Instructions .Route Qty: 1 0RF Rx Instructions: As directed albuterol sulfate 90 mcg/actuation HFA aerosol inhaler 2 puff inhalation QID PRN (Reason: shortness of breath or wheezing) Qty: 6.7 0RF omeprazole 40 mg capsule,delayed release(DR/EC) cyanocobalamin (vitamin B-12) 1,000 mcg/mL solution Follow-up/Referrals: Beto,Bobby Davila MD [Primary Care Provider] - Time of Disposition: 15:52
== END 2024-09-04 15:55 | disposition home or self-care (01) ==
PROVIDERS: Emergency Provider Nurse Practitioner; PCP Internal Medicine
DX: R11.2 Nausea with vomiting, unspecified (principal); R19.7 Diarrhea, unspecified; I10 Essential (primary) hypertension; K21.9 Gastro-esophageal reflux disease without esophagitis; M79.7 Fibromyalgia; H26.9 Unspecified cataract
CPT/HCPCS: 99213; G0463

== ENCOUNTER 2025-02-11 14:19 | Emergency (ER) | payer MEDICARE, SELFPAY ==
[2025-02-11 14:21] VITALS: BP 107/40; PULSE 89; RESP 16; TEMP 37.2; O2SAT 96
--- OUTSIDE RECORDS SUMMARY | 2025-02-11 14:22 | XMS_ITS | Encounter Summary ---
Author Organization [facility] Address [address] [facility] [address] [place] [address] Care Team Providers Care Legal Support Assistant Name Role Phone Luther Pérez MD Primary Care Provider + Luther Pérez MD Primary Care Provider + Luther Pérez MD Primary Care Provider + Alonzo Francois MD Primary Care Provider [phone] Luther Pérez MD Primary Care Provider + Alonzo Francois MD Primary Care Provider [phone] Luther Pérez MD Primary Care Provider + Makayla Corrigan NP Primary Care Provider [phone] Encounter Details Date Type Department Care Team (Late st Contact Info) Description 08/03/2013 Orders Only [facility] Health Information Management [address] [place] [address] Scanning, Provider Social History Tobacco Use Types Packs/Day Years Used Date Smoking Tobacco: Never Alcohol Use Standard Drinks/Week Comments No 0 (1 standard drink = 0.6 oz pur e alcohol) Comments Unknown Sex and Gender Information Value Date Recorded Sex Assigned at Not on file 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 Gender Identity Not on file Sexual Orientation [...] documented as of this encounter Care Teams Legal Support Assistant Relationship Specialty Start Date End Date Luther Pérez MD [address] [place] [address] [place] [address] PCP - General 10/03/16 03/21/19 Luther Pérez MD [address] [place] [address] [place] [address] PCP - General 09/19/16 10/02/16 Luther Pérez MD [address] [place] [address] [place] [address] PCP - General 04/22/13 09/18/16 Alonzo Francois MD [address] [place] [address] PCP - General Family Medicine 03/22/19 08/22/22 Luther Pérez MD [address] [place] [address] [place] [address] PCP - General Internal Medicine 08/23/22 09/15/22 Alonzo Francois MD [address] [place] [address] PCP - General Family Medicine 09/16/22 05/19/24 Luther Pérez MD [address] [facility] [place] [address] PCP - General Internal Medicine 05/20/24 09/27/24 Makayla Corrigan NP [facility] [facility] [place] [address] PCP - General Internal Medicine 09/28/24 documented as of this encounter
--- OUTSIDE RECORDS SUMMARY | 2025-02-11 14:22 | XMS_ITS | Encounter Summary ---
Author Organization [facility] Address [address] [facility] [address] [place] [address] Care Team Providers Care Loan Teller Name Role Phone Luther Pérez MD Primary Care Provider + Luther Pérez MD Primary Care Provider + Luther Pérez MD Primary Care Provider + Alonzo Francois MD Primary Care Provider [phone] Luther Pérez MD Primary Care Provider + Alonzo Francois MD Primary Care Provider [phone] Luther Pérez MD Primary Care Provider + Makayla Corrigan NP Primary Care Provider [phone] Encounter Details Date Type Department Care Team (Late st Contact Info) Description 10/28/2013 Orders Only [facility] Health Information Management [address] [place] [address] Scanning, Provider Social History Tobacco Use Types Packs/Day Years Used Date Smoking Tobacco: Never Alcohol Use Standard Drinks/Week Comments No 0 (1 standard drink = 0.6 oz pur e alcohol) Comments Unknown Sex and Gender Information Value Date Recorded Sex Assigned at Not on file 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 Gender Identity Not on file Sexual Orientation [...] documented as of this encounter Care Teams Loan Teller Relationship Specialty Start Date End Date Luther Pérez MD [address] [place] [address] [place] [address] PCP - General 10/03/16 03/21/19 Luther Pérez MD [address] [place] [address] [place] [address] PCP - General 09/19/16 10/02/16 Luther Pérez MD [address] [place] [address] [place] [address] PCP - General 04/22/13 09/18/16 Alonzo Francois MD [address] [place] [address] PCP - General Family Medicine 03/22/19 08/22/22 Luther Pérez MD [address] [place] [address] [place] [address] PCP - General Internal Medicine 08/23/22 09/15/22 Alonzo Francois MD [address] [place] [address] PCP - General Family Medicine 09/16/22 05/19/24 Luther Pérez MD [address] [facility] [place] [address] PCP - General Internal Medicine 05/20/24 09/27/24 Makayla Corrigan NP [facility] [facility] [place] [address] PCP - General Internal Medicine 09/28/24 documented as of this encounter
--- OUTSIDE RECORDS SUMMARY | 2025-02-11 14:22 | XMS_ITS | Encounter Summary ---
Author Organization [facility] Address [address] [place] [address] Phone Care Team Providers Care Production Broacher Name Role Phone Luther Pérez MD Primary Care Provider [phone] Encounter Details Date Type Department Care Team (Late st Contact Info) Description 10/10/2024 Transcribe Orders [facility] Central Scheduling [address] [place] [address] Makayla Corrigan, VETERINARY NURSE, CALL SPECIALIST [address] [facility] [address] [address] Social History Tobacco Use Types Packs/Day Years Used Date Smoking Tobacco: Never Assessed Comments Unknown Sex and Gender Information Value Date Recorded Sex Assigned at Not on file Legal Sex Female 2:39 PM CDT Gender Identity Not on file Sexual Orientation Not on file documented as of this encounter Plan of Treatment Not on file documented as of this encounter Visit Diagnoses Not on filedocumented in this encounter Care Teams Production Broacher Relationship Specialty Start Date End Date Luther Pérez MD [address] [place] [address] PCP - General Internal Medicine 10/05/24 documented as of this encounter
--- OUTSIDE RECORDS SUMMARY | 2025-02-11 14:22 | XMS_ITS | Clinical Summary ---
Author Organization [facility] Address [address] [place] [address] Care Team Providers Care Utilities Operator Name Role Phone Makayla Corrigan NP Primary Care Provider [phone] Allergies Active Allergy Reactions Criticality Noted Date [...] CAPSULE BY MOUTH DAILY 90 capsule 1 10/16/19 21 Active pravastatin (PRAVACHOL) 10 mg tabletIndications: Mixed hyperlipidemia TAKE 1 TABLET(10 MG) BY MOUTH DAILY 90 tablet 3 11/27/19 22 Active B2/B6 phos/levomef rachna/mecobal (EB-N3 DR ORAL) Take by mouth Active cyanocobalamin (Vitamin B-12) 1,000 mcg/mL injectionIndicatio ns:Other vitamin B12 deficiency anemia ADMINISTER 1 ML(1000 MCG) IN THE MUSCLE EVERY 30 DAYS DIRECTED 1 mL 2 06/02/20 22 Active Additional Information Patient not taking.Reported on 12/28/2024 lisinopril-hydroCH LOROthiazide (ZESTORETIC) 20-12.5 mg per tabletIndications: Benign hypertension TAKE 1 TABLET BY MOUTH DAILY 90 tablet 06/23/20 22 Active Additional Information Patient not taking.Reported on 12/28/2024 ALPRAZolam (XANAX) 0.25 mg tabletIndications: Anxiety state TAKE 1 TABLET BY MOUTH EVERY NIGHT NEEDED FOR ANXIETY OR SLEEP 30 tablet 1 08/07/19 23 Active cyclobenzaprine (FLEXERIL) 5 mg tablet 11/21/19 23 Active clobetasoL (TEMOVATE) 0.05 % ointmentIndication s:Vaginal itching Apply topically 2 (two) times a day 30 g 02/12/20 23 Active Additional Information Patient not taking.Reported on 12/28/2024 dicyclomine (BENTYL) 20 mg tablet Take one pill up to 3 times daily as needed for abdominal pain and/or cramping. 90 tablet 05/24/20 24 Active Additional Information Patient not taking.Reported on 12/28/2024 ondansetron (ZOFRAN) 4 mg tablet Take 1 tablet (4 mg total) by mouth every 6 (six) hours 12 tablet 09/06/19 25 Active Additional Information Patient not taking.Reported on 12/28/2024 calcitRIOL (ROCALTROL) 0.5 mcg capsule Take 1 capsule (0.5 mcg total) by mouth daily 09/27/19 25 Active ferrous sulfate 325 mg (65 mg of elemental iron) tablet Take 1 tablet (325 mg total) by mouth 2 (two) times a day 09/20/19 25 Active potassium chloride ER 10 mEq CR tablet Take 1 tablet/capsule (10 mEq total) by mouth daily 10/13/19 25 Active ascorbic acid 500 mg tablet,chewable Take 1 tablet/chew tab (500 mg total) by mouth daily Active omeprazole (PriLOSEC) 40 mg capsule Take 1 capsule (40 mg total) by mouth daily 90 capsule 3 10/15/19 25 Active spironolactone (ALDACTONE) 25 mg tabletIndications: Benign hypertension Take 1 tablet (25 mg total) by mouth daily 90 tablet 3 12/15/19 25 Active furosemide (LASIX) 40 mg tablet Take 1 tablet (40 mg total) by mouth daily 90 tablet 3 12/15/19 25 026 Active Hospital, Clinic, or Other Facility Administered [...] Active Problems Problem Noted Date Diagnosed Date Acute diastolic heart failure 12/14/2024 Lower abdominal pain 05/20/2024 Trochanteric bursitis of both hips 12/29/2022 Gastroesophageal reflux disease without esophagi tis 10/13/2022 Trochanteric bursitis of right hip 08/30/2019 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 Spoke with Dr. Caal who says there is now need for f/u due to age and biopsy results. Will continue on Nexium 40mg daily. Irritable bowel syndrome with constipation 03/24 Assessment & Plan (06/23/2019 10:03 AM MANUFACTURING WEAVER): Patient doing well with fiber gummies. No [...] 01/17/2019 Assessment & Plan (06/23/2019 10:06 AM MANUFACTURING WEAVER): Large hiatal hernia. Pt well controlled on [...] (01/13/2019): Added automatically from request for surgery [id number] Assessment & Plan (06/23/2019 10:05 AM MANUFACTURING WEAVER): Pt says dysphagia is about the same. 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 Occasional [...] PM CDT): She remains symptomatic despite taking [id number] Nexium. Will start full dose Nexium prescription [...] sling 1999, & 2000 Abnormal mammogram 01/24/2009 Encounters Date Type Department Care Team Description 02/01/2025 2:30 PM CDT Therapy [facility] [place] [address] Brad Harrison, PT Impaired functional mobility, balance, gait, and endurance (Primary Dx); Difficulty in walking, not elsewhere classified 01/30/2025 3:15 PM CDT Therapy [facility] [place] [address] Anju Rutherford, PT Impaired functional mobility, balance, gait, and endurance (Primary Dx); Difficulty in walking, not elsewhere classified 01/30/2025 Plan of Care Documentation [facility] [place] [address] 01/17/2025 1:45 PM CDT Lab [facility] Laboratory [address] [address] 01/13/2025 2:15 PM CDT Office Visit [facility] at [address] [place] [address] Lolita Quick NP Acute diastolic heart failure (HCC) (Primary Dx); Essential (primary) hypertension 12/28/2024 4:02 PM CDT - 12/28/2024 6:22 PM CDT Emergency [facility] Emergency Department [address] [place] [address] Ja Gonzalez MD Bronchitis (Primary Dx) Discharge Disposition: Discharge to home or self care 12/28/2024 2:15 PM CDT Office Visit [facility] [place] [address] [place] [phone] Caitlin May NP Shortness of breath (Primary Dx); Hypoxemia 12/23/2024 1:00 PM CDT Therapy [facility] Physical Therapy [facility] [address] [place] [address] Brad Harrison, PT Difficulty in walking, not elsewhere classified (Primary Dx) 12/22/2024 2:00 PM CDT - 12/22/2024 11:59 PM CDT Hospital Encounter [facility] Imaging Center [address] [place] [id number] Localized enlarged lymph nodes; Lymphedema, not elsewhere classified Discharge Disposition: Discharge to home or self care 12/21/2024 Telephone [facility] [address] [place] [address] Dominique Wilder 12/20/2024 Results Follow-Up [facility] at [address] [phone] Lolita Quick NP Pro B-type natriuretic peptide, Basic metabolic panel, eGFR 12/19/2024 1:55 PM CDT Lab [facility] Laboratory [address] [place] [address] Acute diastolic heart failure (HCC) 12/19/2024 1:00 PM CDT Therapy [facility] Physical Therapy [facility] [address] [place] [address] Chris Cabrera, PT Difficulty in walking, not elsewhere classified (Primary Dx) 12/14/2024 1:30 PM CDT Office Visit [facility] at [address] [place] [phone] Lolita Quick NP Essential (primary) hypertension (Primary Dx); Acute diastolic heart failure (HCC); Benign hypertension 12/12/2024 10:00 AM CDT Therapy [facility] [place] [address] Chris Cabrera, PT Difficulty in walking, not elsewhere classified (Primary Dx) 12/09/2024 1:00 PM CDT Therapy [facility] [place] [address] Brad Harrison, PT Difficulty in walking, not elsewhere classified (Primary Dx) 11/29/2024 10:00 AM CDT Therapy [facility] [place] [address] Chris Cabrera, PT Difficulty in walking, not elsewhere classified (Primary Dx) 11/22/2024 10:15 AM CDT Therapy [facility] Physical Therapy [facility] [place] [address] Minal Siegel, PT Difficulty in walking, not elsewhere classified (Primary Dx) 11/18/2024 10:45 AM CDT Therapy [facility] Physical Therapy [facility] [place] [address] Haley Edwards, PT Difficulty in walking, not elsewhere classified (Primary Dx) 11/14/2024 1:30 PM CDT Therapy [facility] Physical Therapy [facility] [place] [address] Brad Harrison, PT Difficulty in walking, not elsewhere classified 11/14/2024 Plan of Care Documentation [facility] Physical [facility] [place] [address] from Last 3 Months Immunizations Immunization Administration [...] Medical History Date Comments Hx Other Medical 01-POWDER HAND Hx Other Medical 02-GI Hx Other Medical 03-UROLOGIST Hx Other Medical hawley's Hx Other Medical OA Hx Other Medical cataracts Hx Other Medical neuropathy Hx Other Medical ALBERT Hx 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 Never 10/14/2024 Q2: How many drinks containi ng alcohol do you have on a typical day when you are drinking? Patient does not drink Frequency of Binge Drinking Not on file 10/04 PHQ-2 Answer Date Recorded PHQ-2 Total Score (If total score is 3 or more points, staff should administer the PHQ-9) 0 03/17/2022 Personal Safety Answer Date Recorded Have you ever been in or are you currently in a harmful physical or emotional relationship or is someone making you feel afraid or unsafe? Denies 12/28/2024 Comments No Sex and Gender Information Value Date Recorded Sex Assigned at Not on file Legal Sex Female 5:14 PM MANUFACTURING WEAVER Gender Identity Not on file Sexual Orientation Not on file Obstetrics History Para Term AB IAB SAB Ectopic Multiple Livin g Live Births 2 2 2 Date Outcome GA Total Labor Labor/2nd/3rd Weight Sex Type Anes PTL Rossy A1 A5 Name Clin Term Term Last Filed Vital Signs Vital Sign Reading Time Taken Comments Blood Pressure 132/76 01/13/2025 2:21 PM CDT Pulse 104 01/13/2025 2:21 PM CDT Temperature 37.6 C (99.6 F) 12/28/2024 4:35 PM CDT Respiratory Rate 18 01/13/2025 2:21 PM CDT Oxygen Saturation 95% 12/28/2024 5:30 PM CDT Inhaled Oxygen Concentration - - Weight 47.6 kg (105 lb) 01/13/2025 2:21 PM CDT Height 157.5 cm (5' 2) 01/13/2025 2:21 PM CDT Body Mass Index 19.2 01/13/2025 2:21 PM CDT Plan of Treatment Health Maintenance Due [...] 05/09/2019, Additional history exists Covid-19 Vaccine (3 2023-2 5 season) 2024 07/11/2021, 09/26/2020 Osteoporosis Screening-Bone Density Scan 09/01/2024 09/01/2022, 08/31/2020, 01/29/2016 Influenza Vaccine (#1) 2025 2, 03/30/2020, 03/30/2020, Additional history exists Colon Cancer Screening-CT Colonography Discontinued 07/16/2010, 07/16/2010 Colon Cancer Screening-DNA Stool Discontinued 07/16/19 11, 07/16/2010 Colon Cancer Screening-Sigmoidoscopy Discontinued 07/16/2010, 07/16/2010 Pneumococcal vaccine 65+ Completed 014, 10/04/2012, 10/04/2012 Colon Cancer Screening-FIT Discontinued 10/19, 07/16/2010, 07/16/2010 Procedures Procedure Name Priority Date/Time Associated Diagnosis Comments CLINICAL PATHOLOGY REPORT Routine 01/17/2025 1:49 PM CDT CLINICAL PATHOLOGY REPORT Routine 01/17/2025 1:49 PM CDT EGFR Routine 01/17/2025 1:49 PM CDT IMMUNOFIXATION, URINE Routine 01/17/2025 1:49 PM CDT MAGNESIUM Routine 01/17/2025 1:49 PM CDT VITAMIN D 25 HYDROXY Routine 01/17/2025 1:49 PM CDT RENAL FUNCTION PANEL Routine 01/17/2025 1:49 PM CDT T4, FREE Routine 01/17/2025 1:49 PM CDT TSH Routine 01/17/2025 1:49 PM CDT PTH Routine 01/17/2025 1:49 PM CDT PROTEIN, TOTAL Routine 01/17/2025 1:49 PM CDT PROTEIN ELECTROPHORESIS, WITHOUT REFLEX, SERUM Routine 01/17/2025 1:49 PM CDT TROPONIN T HIGH-SENSITIVITY 2-HOUR Timed 12/28/2024 5:27 PM CDT XR CHEST PA LATERAL 2 VIEWS ED 12/28/2024 3:53 PM CDT ECG 12-LEAD STAT 12/28/2024 3:45 PM CDT EGFR STAT 12/28/2024 3:43 PM CDT DIFFERENTIAL AUTO STAT 12/28/2024 3:4 3 PM CDT TROPONIN T HIGH-SENSITIVITY SERIES (BASELINE, 2HR, 4HR, 6HR) STAT 12/28/2024 3:43 PM CDT SEPSIS LACTATE WITH REFLEX STAT 12/28/2024 3:43 PM CDT COMPREHENSIVE METABOLIC PANEL STAT 12/28/2024 3:43 PM CDT CBC WITH AUTO DIFFERENTIAL STAT 12/28/2024 3:[address] PELVIS W CONTRAST Schedule Routine, Read Routine (OP Routine) 12/22/2024 2:35 PM CDT Localized enlarged lymph nodes Lymphedema, not elsewhere classified EGFR Routine 12/19/2024 1:56 PM CDT Acute diastolic heart failure (HCC) BASIC METABOLIC PANEL Routine 12/19/2024 1:56 PM CDT Acute diastolic heart failure (HCC) PRO B-TYPE NATRIURETIC PEPTIDE Routine 12/19/2024 1:56 PM CDT Acute diastolic heart failure (HCC) FIT OCCULT BLOOD, FECAL Routine 10/19/2022 6:00 AM CDT Bilateral lower abdominal cramping Flatulence Bloating SCREENING MAMMOGRAM BILATERAL W SMITA Schedule Routine, Read Routine (OP Routine) 09/01/2022 1:59 PM MANUFACTURING WEAVER Encounter for screening mammogram for malignant neoplasm of breast DEXA AXIAL SKELETON BONE DENSITY 1 OR MORE SITES Schedule Routine, Read Routine (OP Routine) 09/01/2022 1:37 PM MANUFACTURING WEAVER Osteoporosis, unspecified osteoporosis type, unspecified pathological fracture presence HM COLONOSCOPY Routine 07/16/2010 from Last 3 Months or Most Recently Relevant to Health Maintenance Results * Clinical pathology report (01/17/2025 1:49 PM CDT) Miscellaneous 01/17/2025 1:4 9 PM CDT 01/19/2025 7:44 AM CDT Narrative 01/20/2025 8:53 AM CDT EPIC results best viewed via link to PDF [facility] Department of Pathology [address] [place], [place] [id number] Final Report Note to Patients: This report may contain a detailed description of human tissue sent by a health care provider to the laboratory for pathologic evaluation. The content of this report is essential for diagnosis and may provide important critical findings. This information may be unfamiliar to patients to review without a medical professional present. It is advised that the patient review this report in the presence of a health care provider who can answer questions and explain the details. Patient Name: LARA FIELDS Address: [address] [place] [address]- Gender: F : 1935 (Age: 89) Service: Location: N : [id number] Hospital #: [id number] Patient Type: [facility] EP ANCILLARY Taken: 01/17/2025 Received: 01/19/2025 Accessioned: 01/19/2025 Physician(s): Dr. Luther Pérez M.D. [facility] Specimen(s) Received A: Urine Urine Protein Immunofixation ElectrophoresisReported:01/20/2025 Interpretation: Urine Protein Immunofixation: Normal urine immunofixation study. Comment: Urine Protein Immunofixation: Examination of G, A and M heavy chains as well as kappa and lambda light chains reveals no evidence of abnormal bands. Teo Galdamez MD PhDReport Electronically Reviewed and Signed Out By Teo Galdamez MD PhD 01/20/2025 08:51:40 The performance characteristics of some immunohistochemical stains, fluorescence in-situ hybridization tests and immunophenotyping by flow cytometry cited in this report (if any) were determined by the Surgical Pathology Department at [facility] as part of an ongoing auditor/quality program and in compliance with federally mandated regulations drawn from the Clinical Laboratory Improvement Act of 1988 (CLIA '88). Some of these tests rely on the use of analyte specific reagents and are subject to specific labeling requirements by the US Food and Drug Administration. Such diagnostic tests may only be performed in a facility that is certified by the Department of Health and Human Services as a high complexity laboratory under CLIA '88. The FDA has determined that such clearance or approval is not necessary. This test is used for clinical purposes. It should not be regarded as investigational or for research. Nevertheless, federal rules concerning the medical use of analyte specific reagents require that the following disclaimer be attached to the report: This test was developed and its performance characteristics determined by the Surgical Pathology Department [facility]. It has not been cleared or approved by the U. S. Food and Drug Administration. REPORT IMAGES AND SCANNED DOCUMENTS, IF INCLUDED, ONLY VIEWABLE IN PDF VERSION OF REPORTe o Luther Pérez MD LAB PATHOLOGY ORDERABLES Final Result * Clinical pathology report (01/17/2025 1:49 PM CDT) Miscellaneous 01/17/2025 1:4 9 PM CDT 01/19/2025 7:43 AM CDT Narrative 01/20/2025 8:53 AM CDT EPIC results best viewed via link to PDF [facility] Department of Pathology [address] [place] [address] Final Report Note to Patients: This report may contain a detailed description of human tissue sent by a health care provider to the laboratory for pathologic evaluation. The content of this report is essential for diagnosis and may provide important critical findings. This information may be unfamiliar to patients to review without a medical professional present. It is advised that the patient review this report in the presence of a health care provider who can answer questions and explain the details. Patient Name: LARA FIELDS Address: [address] [place] [address] [place] [address]- Gender: F : 1935 (Age: 89) Service: Location: [facility] #: [id number] Patient Type: [facility] EP ANCILLARY Taken: 01/17/2025 Received: 01/19/2025 Accessioned: 01/19/2025 Physician(s): Dr. Luther Pérez M.D. [facility] Specimen(s) Received A: Blood (serum) Serum Protein ElectrophoresisReported:01/20/2025 Interpretation: Serum Protein Electrophoresis: Normal serum protein electrophoresis pattern. Comment: Serum Protein Electrophoresis: There are no significant abnormalities of the protein fractions. See Epic and/or separate report for protein fraction table. Teo Galdamez MD PhDReport Electronically Reviewed and Signed Out By Teo Galdamez MD PhD 01/20/2025 08:50:36 The performance characteristics of some immunohistochemical stains, fluorescence in-situ hybridization tests and immunophenotyping by flow cytometry cited in this report (if any) were determined by the Surgical Pathology Department at [facility] as part of an ongoing auditor/quality program and in compliance with federally mandated regulations drawn from the Clinical Laboratory Improvement Act of 1988 (CLIA '88). Some of these tests rely on the use of analyte specific reagents and are subject to specific labeling requirements by the US Food and Drug Administration. Such diagnostic tests may only be performed in a facility that is certified by the Department of Health and Human Services as a high complexity laboratory under CLIA '88. The FDA has determined that such clearance or approval is not necessary. This test is used for clinical purposes. It should not be regarded as investigational or for research. Nevertheless, federal rules concerning the medical use of analyte specific reagents require that the following disclaimer be attached to the report: This test was developed and its performance characteristics determined by the Surgical Pathology Department [facility]. It has not been cleared or approved by the U. S. Food and Drug Administration. REPORT IMAGES AND SCANNED DOCUMENTS, IF INCLUDED, ONLY VIEWABLE IN PDF VERSION OF REPORTe o Luther Pérez MD LAB PATHOLOGY ORDERABLES Final Result * (ABNORMAL) Protein electrophoresis without reflex, serum with interpretation (01/17/2025 1:49 PM CDT) Protein, sr 5.9(L) 6.2 - 8.2 g/dL Comment:Testing performed by : [facility], [address] [place] [address], [place]., [address] Albumin 3.4 3.2 - 5.0 g/dL MARY NIXON (BARKER) Comment:Testing performed by : [facility], [address] [place] [address]., [id number] Alpha-1 globulin 0.3 0.2 - 0.4 g/dL [facility] (EDY) Comment:Testing performed by : [facility], [address] [place] [address]., [id number] Alpha-2 globulin 0.8 0.5 - 1.0 g/dL [facility] (EDY) Comment:Testing performed by : [facility], [address] [place] [address]., [id number] Beta-1 globulin 0.4 0.3 - 0.6 g/dL [facility] (EDY) Comment:Testing performed by : [facility], [address] [place] [address]., [id number] Beta-2 globulin 0.2 0.2 - 0.6 g/dL [facility] (EDY) Comment:Testing performed by : [facility], [address] [place] [address]., [id number] Gamma globulin 0.7 0.5 - 1.7 g/dL [facility] (EDY) Comment:Testing performed by : [facility], [address] [place] [address], [id number] SPEP interp See Cl Path Rpt [facility] (EDY) Comment:Testing performed by : [facility], [address] [place] [address], [id number] Blood 01/17/2025 1:49 PM CDT 01/17/2025 1:51 PM CDT us Ltuher Pérez MD LAB BLOOD ORDERABLES [facility] al Result [facility] (EDY) 1 [facility] Department [place] [address] * eGFR (01/17/2025 1:49 PM CDT) eGFR 80 >=60 mL/min/1. 73 m2 Comment: Interpretive Data Reference Interval Normal >/= 90 mL/min/1.73m2 Mildly decreased* 60 - 89 mL/min/1.73m2 Mildly to moderately decreased 45 - 59 mL/min/1.73m2 Moderately to severely decreased 30 - 44 mL/min/1.73m2 Severely decreased 15 - 29 mL/min/1.73m2 Kidney Failure < 15 mL/min/1.73m2 *Relative to young adult level Estimated glomerular filtration rate is determined by the 2020 CKD-EPI equation recommended by the National Kidney Foundation (A Unifying Approach to GFR Estimation: Recommendations of the NKF-ASK Task Force on Reassessing the Inclusion of Race in Diagnosing Kidney Disease, JASN 2020). The CKD-EPI equation should not be used for patients with unstable renal function and has not been validated in children and those over 70. Current interpretive data was last reviewed 2021. Testing performed by: [facility], [address] [place] [address]., [id number] Blood 01/17/2025 1:49 PM CDT 01/17/2025 8:22 PM CDT us Luther Pérez MD LAB BLOOD ORDERABLES Fin al Result Performing Organization Address City/[facility]/ZIP Co de Phone Number MARY NIXON (EDY) 1 [facility] [employer] [place] [address] * Immunofixation, urine with interpretation (01/17/2025 1:49 PM CDT) Pathologist [facility] Immunofixation , Ur See Cl Path Rpt Comment:Testing performed by : [facility], [address] [place] [address], [id number] Urine 01/17/2025 1:49 PM CDT 01/17/2025 1:51 PM CDT us Luther Pérez MD LAB URINE ORDERABLES Fin al Result Performing Organization Address City/[facility] Co de Phone Number [facility]ARY [facility] (EDY) 1 [facility] [place] [address] * (ABNORMAL) Vitamin D 25 hydroxy (01/17/2025 1:49 PM CDT) Vitamin D 25-OH 28(L) 30 - 80 ng/mL Comment:Testing performed by : [address] [address] Blood 01/17/2025 1:49 PM CDT 01/17/2025 1:53 PM CDT Luther Pérez MD LAB BLOOD ORDERABLES Fin al Result Performing Organization Address [facility] Co de Phone Number MARY NIXON (BARKER) 1 [facility] [place] [address] * TSH (01/17/2025 1:49 PM CDT) [facility] Thyroid Stimulating Hormone 2.95 0.30 - 4.20 mcIUnit/mL Comment:Testing performed by : [facility], [address] [place] [address], [id number] Blood 01/17/2025 1:49 PM CDT 01/17/2025 1:52 PM CDT Luther Pérez MD LAB BLOOD ORDERABLES Fin al Result Performing Organization Address [facility] de Phone Number MARY NIXON (BARKER) [address] [place] [address] [place] [address] * T4, free (01/17/2025 1:49 PM CDT) [facility] Free T4 1.02 0.90 - 1.70 ng/dL Comment:Testing performed by : [facility], [address] [place] [address], [id number] Blood 01/17/2025 1:49 PM CDT 01/17/2025 1:52 PM CDT Luther Pérez MD LAB BLOOD ORDERABLES Fin al Result Performing Organization Address [facility] Co de Phone Number MARY NIXON (BARKER) 1 [place] [address] * (ABNORMAL) Protein, total (01/17/2025 1:49 PM CDT) [facility] Protein, pl 6.0(L) 6.5 - 8.5 g/dL Comment:Testing performed by : [address], [address] Blood 01/17/2025 1:49 PM CDT 01/17/2025 1:52 PM CDT us Luther Pérez MD LAB BLOOD ORDERABLES Fin al Result MARY NIXON (BARKER) 1 [facility] [place] [address] * PTH (01/17/2025 1:49 PM CDT) PTH 31 15 - 65 pg/mL Comment:Testing performed by : [address], [address] Blood 01/17/2025 1:49 PM CDT 01/17/2025 1:52 PM CDT us Luther Pérez MD LAB BLOOD ORDERABLES Fin al Result Performing Organization Address [facility] Co de Phone Number MARY NIXON (BARKER) [address] [place] [address] [place] [address] * Magnesium (01/17/2025 1:49 PM CDT) Magnesium 1.6 1.4 - 2.5 mg/dL Comment:Testing performed by : [address] [address] Blood 01/17/2025 1:49 PM CDT 01/17/2025 1:52 PM CDT us Luther Pérez MD LAB BLOOD ORDERABLES Fin al Result Performing Organization Address City/[facility]/ZIP Co de Phone Number MARY NIXON (BARKER) 1 [place] [address] * Renal function panel (01/17/2025 1:49 PM CDT) Sodium 139 135 - 145 mmol/L Comment:Testing performed by : [facility], [address] [place] [address]., [address] Potassium, pl 4.1 3.3 - 4.9 mmol/L [facility] (EDY) Comment:Testing performed by : [facility], [address] [place] [address]., [address] Chloride 108 97 - 110 mmol/L [facility] ([facility]Y) Comment:Testing performed by : [address] [address] CO2 23 22 - 32 mmol/L [facility] ([facility]) Comment:Testing performed by : [address] [address] Anion gap 8 2 - 15 mmol/L [facility] ([facility]) Comment:Testing performed by : [address], [address] BUN 21 6 - 25 mg/dL [facility] ([facility]) Comment:Testing performed by : [address], [address] Creatinine 0.72 0.60 - 1.10 mg/dL [facility] ([facility]) Comment:Testing performed by : [address], [address] Glucose 91 70 - 199 mg/dL [facility] ([facility]) Comment: Interpretive Data Fasting glucose >/= 126 mg/dl is diagnostic for diabetes. Fasting is defined as no caloric intake for at least 8 hours. Fasting glucose between 100 mg/dl to 125 mg/dl is diagnostic of prediabetes. In a patient with classic symptoms of hyperglycemia or hyperglycemic crisis, a random glucose >/= 200 mg/dl is diagnostic for diabetes. In the absence of unequivocal hyperglycemia, results should be confirmed by repeat testing. The classification and Diagnosis of Diabetes Diabetes Care 202; 46: S19-S40. Current interpretive data was last revised 2022. Testing performed by: [address] [address] Calcium 8.9 8.5 - 10.3 mg/dL [facility] (EDY) Comment:Testing performed by : [address], [address] Phosphorus, pl 3.9 2.3 - 4.5 mg/dL [facility] ([facility]) Comment:Testing performed by : [facility], [address] [place] [address]., [address] Albumin 3.8 3.5 - 5.0 g/dL [facility] (EDY) Comment:Testing performed by : [facility], [address] [place] [address]., [address] Blood 01/17/2025 1:49 PM CDT 01/17/2025 1:52 PM CDT Luther Pérez MD LAB BLOOD ORDERABLES Fin al Result Performing Organization Address [facility] de Phone Number MARY NIXON (EDY) 1 [facility] [place] [address] * (ABNORMAL) Troponin T high-sensitivity 2-hour (12/28/2024 5:27 PM CDT) Trop T hs 46(H) <=14 ng/L Comment: Interpretive Data For further hscTnT resources including the diagnostic algorithm and an aid in interpretation, copy and paste this link: https://nrl.testcatalog.org/show/hsTrop Current Interpretive Data last revised 2020. Trop T hs delta -1 ng/L [facility] ([facility]) Trop T hs interp Insignificant [facility] ([facility]) Blood 12/28/2024 5:27 PM CDT 12/28/2024 5:35 PM CDT Ja Gonzalez MD LAB BLOOD ORDERABLES Final Res ult Performing Organization Address [facility] Co de Phone Number MARY NIXON (EDY) 1 [facility] [place] [address] * XR Chest PA Lateral 2 Views (If patient hemodynamically stable and ambulatory) (12/28/2024 3:53 PM CDT) Anatomical Region Laterality Modality Body, Chest N/A Computed Radiogr aphy 12/28/2024 4:15 PM CDT Narrative 12/28/2024 4:16 PM CDT EXAM DESCRIPTION: XR CHEST PA LATERAL 2 VIEWS REASON FOR STUDY: sob, cough Cough, SOB, and chest congestion x 1 week. Pt reports she is coughing up green mucus. Best images obtainable TECHNIQUE: PA and lateral radiographic view(s) of the chest. COMPARISON: None FINDINGS: LUNGS: Mild emphysematous changes seen. The bilateral costophrenic angles are blunted which can be seen with pleural effusions or pleural reaction. No pneumothorax is noted. HEART/MEDIASTINUM: Cardiac silhouette normal in size. Mediastinal and hilar contours appear normal. There is a large bowel containing hiatal hernia. LINES/TUBES: None. BONES: No acute osseous abnormality. IMPRESSION: 1. Emphysematous change. 2. Blunted costophrenic angles which can be seen with pleural effusions or pleural reaction. 3. Large hiatal hernia. THIS IS AN ELECTRONICALLY VERIFIED FINAL REPORT 12/28/2024 4:16 PM - Electronically signed by Smith Dumont M.D. BS: BS Report ID: [id number] Reading Location: [place] [address] Procedure Note Smith Dumont MD - 12/28/2024 EXAM DESCRIPTION: XR CHEST PA LATERAL 2 VIEWS REASON FOR STUDY: sob, cough Cough, SOB, and chest congestion x 1 week. Pt reports she is coughing upgreen mucus. Best images obtainable TECHNIQUE: PA and lateral radiographic view(s) of the chest. COMPARISON: None FINDINGS: LUNGS: Mild emphysematous changes seen. The bilateral costophrenicangles are blunted which can be seen with pleural effusions or pleural reaction.No pneumothorax is noted. HEART/MEDIASTINUM: Cardiac silhouette normal in size. Mediastinal andhilar contours appear normal. There is a large bowel containing hiatal hernia. LINES/TUBES: None. BONES: No acute osseous abnormality. IMPRESSION: 1. Emphysematous change. 2. Blunted costophrenic angles which can be seen with pleural effusionsor pleural reaction. 3. Large hiatal hernia. THIS IS AN ELECTRONICALLY VERIFIED FINAL REPORT 12/28/2024 4:16 PM - Electronically signed by Smith PerryD. BS: BS Report ID: [id number] Reading Location: [id number] Ja Gonzalez MD IMG XR PROCEDURES Final Result * ECG 12 lead (12/28/2024 3:45 PM CDT) 12/28/2024 3:45 PM CDT Narrative [facility] - 12/29/2024 9:58 AM CDT Vent Rate: 122 bpm RR Interval: 489 msec DC Interval: 132 msec QRS Duration: 65 msec QT Interval: 289 msec QTC Interval: 362 msec P-R-T [place]: 24 - -41 - 66 degrees IMPRESSION: SINUS TACHYCARDIA LEFT AXIS DEVIATION [QRS AXIS < -30] PATTERN CONSISTENT WITH PULMONARY DISEASE ABNORMAL ECG Electronically Signed By: Dexter Camarillo MD Ja Gonzalez MD ECG ORDERABLES Final Result Performing Organization Address City/[facility]/ZIP Co de Phone Number [facility] * (ABNORMAL) Troponin T high-sensitivity series (baseline, 2hr, 4hr, 6hr) (12/28/2024 3:43 PM CDT) [facility] Trop T hs 47(H) <=14 ng/L Comment: Interpretive Data For further hscTnT resources including the diagnostic algorithm and an aid in interpretation, copy and paste this link: https://nrl.testcatalog.org/show/hsTrop Current Interpretive Data last revised 2020. Blood 12/28/2024 3:43 PM CDT 12/28/2024 3:49 PM CDT Ja Gonzalez MD LAB BLOOD ORDERABLES Final Res ult MARY NIXON (BARKER) 1 [facility] [place] [address] * Sepsis Lactate w/ Reflex (12/28/2024 3:43 PM CDT) [facility] Sepsis Lactate 0.9 0.7 - 2.0 mmol/L Blood 12/28/2024 3:43 PM CDT 12/28/2024 3:49 PM CDT Ja Gonzalez MD LAB BLOOD ORDERABLES Final Res ult MARY NIXON (BARKER) [address] [place] [address] [place] [address] * eGFR (12/28/2024 3:43 PM CDT) [facility] eGFR 81 >=60 mL/min/1. 73 m2 Comment: Interpretive Data Reference Interval Normal >/= 90 mL/min/1.73m2 Mildly decreased* 60 - 89 mL/min/1.73m2 Mildly to moderately decreased 45 - 59 mL/min/1.73m2 Moderately to severely decreased 30 - 44 mL/min/1.73m2 Severely decreased 15 - 29 mL/min/1.73m2 Kidney Failure < 15 mL/min/1.73m2 *Relative to young adult level Estimated glomerular filtration rate is determined by the 2020 CKD-EPI equation recommended by the National Kidney Foundation (A Unifying Approach to GFR Estimation: Recommendations of the NKF-ASK Task Force on Reassessing the Inclusion of Race in Diagnosing Kidney Disease, JASN 2020). The CKD-EPI equation should not be used for patients with unstable renal function and has not been validated in children and those over 70. Current interpretive data was last reviewed 2021. Blood 12/28/2024 3:43 PM CDT 12/28/2024 3:49 PM CDT Ja Gonzalez MD LAB BLOOD ORDERABLES Final Res ult MARY NIXON (BARKER) 1 [facility] [place] [address] * (ABNORMAL) Differential, auto (12/28/2024 3:43 PM CDT) [facility] Neutrophil abs 13.79(H) 1.50 - 6.50 K/cumm Imm gran abs 0.07 0.00 - 0.10 K/cumm [facility] ([facility]) Lymphocyte abs 1.33 0.80 - 3.30 K/cumm [facility] ([facility]) Monocyte abs 0.89(H) 0.20 - 0.80 K/cumm [facility] ([facility]) Eosinophil abs 0.02 0.00 - 0.50 K/cumm [facility] ([facility]) Basophil abs 0.02 0.00 - 0.10 K/cumm [facility] ([facility]) Neutrophil pct 85.6 % [facility] ([facility]) Comment: Interpretive Data Percent cell count reference ranges are not reported, since discordance with absolute values may lead to misinterpretation of CBC data. Current Interpretive Data was last revised on 2017. Imm gran pct 0.4 % [facility] ([facility]) Comment: Interpretive Data Percent cell count reference ranges are not reported, since discordance with absolute values may lead to misinterpretation of CBC data. Current Interpretive Data was last revised on 2017. Lymphocyte pct 8.3 % [facility] ([facility]) Comment: Interpretive Data Percent cell count reference ranges are not reported, since discordance with absolute values may lead to misinterpretation of CBC data. Current Interpretive Data was last revised on 2017. Monocyte pct 5.5 % [facility] ([facility]) Comment: Interpretive Data Percent cell count reference ranges are not reported, since discordance with absolute values may lead to misinterpretation of CBC data. Current Interpretive Data was last revised on 2017. Eosinophil pct 0.1 % [facility] ([facility]) Comment: Interpretive Data Percent cell count reference ranges are not reported, since discordance with absolute values may lead to misinterpretation of CBC data. Current Interpretive Data was last revised on 2017. Basophil pct 0.1 % [facility] ([facility]) Comment: Interpretive Data Percent cell count reference ranges are not reported, since discordance with absolute values may lead to misinterpretation of CBC data. Current Interpretive Data was last revised on 2017. Blood 12/28/2024 3:43 PM CDT 12/28/2024 3:49 PM CDT Ja Gonzalez MD LAB BLOOD ORDERABLES Final Res ult [facility] (EDY) 1 [facility] Department [place] [address] * (ABNORMAL) CBC with auto differential (12/28/2024 3:43 PM CDT) WBC 16.12(H) 3.80 - 9.90 K/cumm Hgb 11.9 11.9 - 15.5 g/dL [facility] ([facility]) Hct 37.4 35.6 - 45.5 % [facility] ([facility]) Plt 341 150 - 400 K/cumm [facility] ([facility]) MPV 9.8 9.1 - 12.3 fL [facility] ([facility]) RBC 4.34 3.90 - 5.20 M/cumm [facility] ([facility]) MCV 86.2 81.3 - 96.4 fL [facility] ([facility]) MCH 27.4 27.1 - 33.3 pg [facility] ([facility]) MCHC 31.8(L) 32.3 - 35.7 g/dL [facility] ([facility]) RDW CV 13.5 11.1 - 14.9 % [facility] ([facility]) RDW SD 42.5 35.7 - 48.1 fL [facility] ([facility]) NRBC abs 0.00 0.00 - 0.01 K/cumm [facility] ([facility]) Blood 12/28/2024 3:43 PM CDT 12/28/2024 3:49 PM CDT Ja Gonzalez MD LAB BLOOD ORDERABLES Final Res ult MARY NIXON (EDY) 1 [facility] Department [place] [address] * (ABNORMAL) Comprehensive metabolic panel (12/28/2024 3:43 PM CDT) Pathologist [facility] Sodium 135 135 - 145 mmol/L Potassium, pl 4.0 3.3 - 4.9 mmol/L [facility] ([facility]) Chloride 97 97 - 110 mmol/L [facility] ([facility]) CO2 22 22 - 32 mmol/L [facility] ([facility]) Anion gap 17(H) 2 - 15 mmol/L [facility] ([facility]) BUN 17 6 - 25 mg/dL [facility] ([facility]) Creatinine 0.71 0.60 - 1.10 mg/dL [facility] ([facility]) Glucose 122 70 - 199 mg/dL [facility] ([facility]) Comment: Interpretive Data Fasting glucose >/= 126 mg/dl is diagnostic for diabetes. Fasting is defined as no caloric intake for at least 8 hours. Fasting glucose between 100 mg/dl to 125 mg/dl is diagnostic of prediabetes. In a patient with classic symptoms of hyperglycemia or hyperglycemic crisis, a random glucose >/= 200 mg/dl is diagnostic for diabetes. In the absence of unequivocal hyperglycemia, results should be confirmed by repeat testing. The classification and Diagnosis of Diabetes Diabetes Care 2021; 46: S19-S40. Current interpretive data was last revised 2022. Calcium 7.8(L) 8.5 - 10.3 mg/dL [facility] ([facility]) Bilirubin, total 0.5 0.1 - 1.2 mg/dL [facility] ([facility]) Protein, pl 6.7 6.5 - 8.5 g/dL [facility] ([facility]) Albumin 3.7 3.5 - 5.0 g/dL [facility] ([facility]) Alk phos 116 40 - 130 Units/L [facility] ([facility]) ALT 16 7 - 45 Units/L [facility] ([facility]) AST 24 10 - 45 Units/L [facility] ([facility]) Blood 12/28/2024 3:43 PM CDT 12/28/2024 3:49 PM CDT us Ja Gonzalez MD LAB BLOOD ORDERABLES Final Res ult [facility] (EDY) 1 [facility] Department [place] [address] * CT Pelvis W Contrast (12/22/2024 2:35 PM CDT) Anatomical Region Laterality Modality Body N/A Computed Tomogra phy 01/04/2025 12:2 7 PM CDT Narrative 01/04/2025 12:41 PM CDT EXAM DESCRIPTION: CT PELVIS W CONTRAST REASON FOR STUDY: lymph nodes F/u of ultrasound done on 11/08/24. Bilateral leg swelling x 6 weeks. TECHNIQUE: CT scan of the pelvis performed with intravenous and without oral contrast using helical scanning technique with dynamic intravenous contrast injection. Reconstructed coronal and sagittal MPR images reviewed. All images stored on PACS. Automated exposure control was used as a dose optimization technique for this examination. CONTRAST TYPE/DOSE: 75mL of IOVERSOL 350 MG IODINE/ML INTRAVENOUS SYRINGE injected via intravenous COMPARISON: 05/23/2024 FINDINGS: URINARY: Partially visualized. Suspect 1 mm right lower pole non-obstructing renal stone. Mild right pelviectasis. Of note, the renal pelvis and ureteropelvic junction is nonvisualized. Proximal obstructing renal stone can not be excluded. Urinary bladder is mildly distended without gross abnormality. GI: Moderate rectal stool burden. Colonic diverticulosis without evidence of acute diverticulitis. Nonspecific liquid stool in small bowel is seen. The appendix is normal. PERITONEUM: New, mesenteric fat stranding most compatible with mild mesenteric edema. RETROPERITONEUM: Prominent right and left inguinal lymph nodes increased size compared to prior 05/23/2024. for reference, interval increased size of a right groin lymph node measuring 1.1 cm, previously 0.8 cm on image 58. REPRODUCTIVE: No significant abnormality. VASCULATURE: Abdominal aorta not fully included in field of view. No visualized abnormality. [id number] calcified atherosclerosis of the visualized aortoiliac vessels. MUSCULOSKELETAL: New, acute to subacute mildly displaced sacrococcygeal fracture compared to prior 05/23/2024, less likely acute discitis/osteomyelitis. Anasarca. 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 Mild degenerative disc disease of the visualized lumbar spine. Left S2 Tarlov cyst. OTHER: No other abnormality. IMPRESSION: 1. New, acute to subacute mildly displaced sacrococcygeal fracture compared to prior 05/23/2024, less likely acute discitis/osteomyelitis. Recommend clinical correlation for recent/prior injury. Consider follow-up serum inflammatory markers, such as ESR and ERCP for further evaluation. 2. Prominent right and left inguinal lymph nodes increased size compared to prior 05/23/2024. These findings are likely reactive. 3. New, mesenteric fat stranding most compatible with mild mesenteric edema. 4. Mild right pelviectasis. Of note, the renal pelvis and ureteropelvic junction is nonvisualized. Proximal obstructing renal stone can not be excluded. Recommend clinical correlation. Consider follow-up retroperitoneal ultrasound versus CT abdomen pelvis for further evaluation. 5. Suspect 1 mm right lower pole non-obstructing renal stone. 6. Anasarca. THIS IS AN ELECTRONICALLY VERIFIED FINAL REPORT 01/04/2025 12:41 PM - Electronically signed by Karthik Babb M.D. BB: BEATRIS Report ID: [id number] Reading Location: [place] [address] Procedure Note Karthik Babb MD PhD - 01/04/2025 EXAM DESCRIPTION: CT PELVIS W CONTRAST REASON FOR STUDY: lymph nodes F/u of ultrasound done on 11/08/24. Bilateral leg swelling x 6 weeks. TECHNIQUE: CT scan of the pelvis performed with intravenous andwithout oral contrast using helical scanning technique with dynamic intravenous contrast injection. Reconstructed coronal and sagittal MPR imagesreviewed. All images stored on PACS. Automated exposure control was used as a dose optimization technique for this examination. CONTRAST TYPE/DOSE: 75mL of IOVERSOL 350 MG IODINE/ML INTRAVENOUSSYRINGE injected via intravenous COMPARISON: 05/23/2024 FINDINGS: URINARY: Partially visualized. Suspect 1 mm right lower pole non-obstructing renal stone. Mild right pelviectasis. Of note, the renal pelvis and ureteropelvic junction is nonvisualized. Proximal obstructing renal stone can not be excluded. Urinary bladder is mildly distendedwithout gross abnormality. GI: Moderate rectal stool burden. Colonic diverticulosis withoutevidence of acute diverticulitis. Nonspecific liquid stool in small bowel is seen. The appendix is normal. PERITONEUM: New, mesenteric fat stranding most compatible with mild mesenteric edema. RETROPERITONEUM: Prominent right and left inguinal lymph nodes increased size compared to prior 05/23/2024. for reference, interval increased sizeof a right groin lymph node measuring 1.1 cm, previously 0.8 cm on image 58. REPRODUCTIVE: No significant abnormality. VASCULATURE: Abdominal aorta not fully included in field of view. No visualized abnormality. [id number] calcified atherosclerosis ofthe visualized aortoiliac vessels. MUSCULOSKELETAL: New, acute to subacute mildly displaced sacrococcygeal fracture compared to prior 05/23/2024, less likely acute discitis/osteomyelitis. Anasarca. Moderate to severe bilateralsacroiliac joint osteoarthritis, right greater than left. Mild degenerative discdisease of the visualized lumbar spine. Left S2 Tarlov cyst. OTHER: No other abnormality. IMPRESSION: 1. New, acute to subacute mildly displaced sacrococcygeal fracturecompared to prior 05/23/2024, less likely acute discitis/osteomyelitis. Recommend clinical correlation for recent/prior injury. Consider follow-up serum inflammatory markers, such as ESR and ERCP for further evaluation. 2. Prominent right and left inguinal lymph nodes increased size comparedto prior 05/23/2024. These findings are likely reactive. 3. New, mesenteric fat stranding most compatible with mild mesentericedema. 4. Mild right pelviectasis. Of note, the renal pelvis and ureteropelvic junction is nonvisualized. Proximal obstructing renal stone can not be excluded. Recommend clinical correlation. Consider follow-upretroperitoneal ultrasound versus CT abdomen pelvis for further evaluation. 5. Suspect 1 mm right lower pole non-obstructing renal stone. 6. Anasarca. THIS IS AN ELECTRONICALLY VERIFIED FINAL REPORT 01/04/2025 12:41 PM - Electronically signed by Karthik Babb M.D. BB: BEATRIS Report ID: [id number] Reading Location: [place] [address] Luther Pérez MD IM CT PROCEDURES Final Result * eGFR (12/19/2024 1:56 PM CDT) eGFR 75 >=60 mL/min/1. 73 m2 Comment: Interpretive Data Reference Interval Normal >/= 90 mL/min/1.73m2 Mildly decreased* 60 - 89 mL/min/1.73m2 Mildly to moderately decreased 45 - 59 mL/min/1.73m2 Moderately to severely decreased 30 - 44 mL/min/1.73m2 Severely decreased 15 - 29 mL/min/1.73m2 Kidney Failure < 15 mL/min/1.73m2 *Relative to young adult level Estimated glomerular filtration rate is determined by the 2020 CKD-EPI equation recommended by the National Kidney Foundation (A Unifying Approach to GFR Estimation: Recommendations of the NKF-ASK Task Force on Reassessing the Inclusion of Race in Diagnosing Kidney Disease, JASN 2020). The CKD-EPI equation should not be used for patients with unstable renal function and has not been validated in children and those over 70. Current interpretive data was last reviewed 2021. Testing performed by: [facility], [address] [place] [address]., [address] Blood 12/19/2024 1:56 PM CDT 12/19/2024 8:28 PM CDT us Lolita Quick FINANCE INTERN LAB BLOOD ORDERABLES nal Result MARY NIXON BARKER 1 [facility] Department [place] [address] * Pro B-type natriuretic peptide (12/19/2024 1:56 PM CDT) NT-proBNP 379 <=450 pg/mL Comment: Interpretive Comments: A. Dyspnea in Acute Care Setting All Ages: < 300 pg/ml, acute heart failure unlikely. < 50 yrs: 300 - 450 pg/ml, further investigation warranted. > 450 pg/ml, acute heart failure likely. 50 - 74 yrs: 300 - 900 pg/ml, further investigation warranted. > 900 pg/ml, acute heart failure likely . > or = 75 yrs: 450 - 1800 pg/ml, further investigation warranted. > 1800 pg/ml, acute heart failure likely. B. Non-acute Setting < 75 yrs < 125 pg/ml, rules out heart failure. > or = 125 pg/ml, further investigation warranted. > or = 75 yrs < 450 pg/ml, rules out heart failure. > or = 450 pg/ml, further investigation warranted. - Knowledge of each individual patient's NT-proBNP range may be more useful than using similar cut-points for every patient. Please note that marked elevations in NT-proBNP levels may be observed in state other than Left Ventricular Congestive Failure, including: acute coronary syndromes, right heart strain/failure (including pulmonary embolism and cor pulmonale), critical illness, renal failure, as well as advanced age. - References: 1. Prashanth TEJADA et.al. Eur Heart J. 2006:27:330-337. 2. Juma EDUARDO, Baldev CALI. J. AM Jocleine Cardiol: Cardiovasc Imag. 2009;2: 216- 225. Interpretive Data Last Revised Date: 2018. Testing performed by: [address] [address] Blood 12/19/2024 1:56 PM CDT 12/19/2024 8:13 PM CDT Lolita Quick FINANCE INTERN LAB BLOOD ORDERABLES Fi nal Result MARY NIXON (BARKER) 1 [facility] Department [place] [address] * (ABNORMAL) Basic metabolic panel (12/19/2024 1:56 PM CDT) Sodium 138 135 - 145 mmol/L Comment:Testing performed by : [address], [address] Potassium, pl 4.3 3.3 - 4.9 mmol/L [facility] (EDY) Comment:Testing performed by : [address], [address] Chloride 99 97 - 110 mmol/L [facility] (EDY) Comment:Testing performed by : [address] [address] CO2 27 22 - 32 mmol/L [facility] (EDY) Comment:Testing performed by : [address], [address] Anion gap 12 2 - 15 mmol/L MARY NIXON (EDY) Comment:Testing performed by : [facility], [address] [place] [address]., [address] BUN 20 6 - 25 mg/dL MARY NIXON (EDY) Comment:Testing performed by : [facility], [address] [place] [address]., [address] Creatinine 0.76 0.60 - 1.10 mg/dL MARY NIXON (EDY) Comment:Testing performed by : [facility], [address] [place] [address]., [address] Glucose 90 70 - 199 mg/dL [facility]ARY [facility] (EDY) Comment: Interpretive Data Fasting glucose >/= 126 mg/dl is diagnostic for diabetes. Fasting is defined as no caloric intake for at least 8 hours. Fasting glucose between 100 mg/dl to 125 mg/dl is diagnostic of prediabetes. In a patient with classic symptoms of hyperglycemia or hyperglycemic crisis, a random glucose >/= 200 mg/dl is diagnostic for diabetes. In the absence of unequivocal hyperglycemia, results should be confirmed by repeat testing. The classification and Diagnosis of Diabetes Diabetes Care 202; 46: S19-S40. Current interpretive data was last revised 2022. Testing performed by: [facility], [address] [place] [address]., [address] Calcium 8.1(L) 8.5 - 10.3 mg/dL MARY NIXON (EDY) Comment:Testing performed by : [address] [address] Blood 12/19/2024 1:56 PM CDT 12/19/2024 8:13 PM CDT us Lolita Quick FINANCE INTERN LAB BLOOD ORDERABLES Fi nal Result MARY NIXON (EDY) 1 [facility] [place] [address] * FIT occult blood, fecal (10/19/2022 6:00 AM CDT) Pathologist [facility] [place] FIT occult blood, fecal Negative Negative MARY NIXON (EDY) Comment: Negative result. This test will not detect upper gastrointestinal bleeding; the HemoQuant test (6320)should be ordered if clinically indicated. Test Performed by: [address] [address] Table Worker: Brad Owen M.D. Ph.D.; CLIA# [id number] Collection date/time has been modified to: 06:00:00. Previous collection date/time: 06:00:00. Stool 10/19/2022 6:00 AM CDT 10/21/2022 3:40 PM CDT us Nathaniel Gurrola FINANCE INTERN LAB BODY FL UIDS AND STOOLS ORDERABLES Edited Result - Final MARY NIXON (BARKER) 1 [facility] Department [place] [address] * SCREENING MAMMOGRAM BILATERAL W SMITA (09/01/2022 1:59 PM MANUFACTURING WEAVER) Anatomical Region Laterality Modality Breast Bilateral Mammography 09/01/2022 3:14 PM MANUFACTURING WEAVER Impressions 09/01/2022 3:14 PM MANUFACTURING WEAVER There is no mammographic evidence of malignancy. A 1 year screening mammogram is recommended. BI-RADS: 1 - Negative. The patient has been or will be contacted. The patient will be entered into a reminder system with a target due date of 1 year for her next mammogram. Electronically signed by: Brad Jiménez M.D. Narrative 09/01/2022 3:14 PM MANUFACTURING WEAVER EXAMINATION: SCREENING MAMMOGRAM BILATERAL W SMITA ORDERING [...] IMG MAMMO PROCEDURES Lalita l Result * Dexa Axial Skeleton Bone Density 1 Or 2 Site (09/01/2022 1:37 PM MANUFACTURING WEAVER) Anatomical Region Laterality Modality Body N/A Other 09/01/2022 10:1 4 PM MANUFACTURING WEAVER Narrative 09/01/2022 10:15 PM MANUFACTURING WEAVER EXAM DESCRIPTION: DEXA AXIAL SKELETON BONE DENSITY 1 OR MORE SITES REASON FOR STUDY: 86 y/o year old F with given history of screening. 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 FINDINGS: AP LUMBAR SPINE L1-L4: Total BMD is 0.955 g/cm2 T-score is -0.8 Dissimilar scan types or analysis methods precludes assessment for calculating a significant change. LEFT HIP: Total BMD is 0.818 g/cm2 T-score is -1.0 Dissimilar scan types or analysis methods precludes assessment for calculating a significant change. Femoral neck BMD is 0.669 g/cm2 T-score is -1.6 FRAX: FRAX tool cannot be utilized due to prior hip/vertebral fracture. IMPRESSION: Based on the left femoral neck bone mineral density (T-score -1.6 ) the patient has low bone mass . REFERENCE: Bone mineral density: Normal (T-score above or = -1.0) Low bone mass (T-score between -1.0 and -2.5) replaces the previously used term osteopenia Osteoporosis (T-score = or below -2.5) Medical evaluation for secondary causes of low bone mineral density may be appropriate. FRAX is a World Health Organization validated fracture risk assessment tool that calculates a person's 10 year probability of a major osteoporosis related fracture and hip fracture. According to the National Osteoporosis Foundation guidelines, postmenopausal women and men age 50 or older with low bone mass and a 10 year probability of a major osteoporosis related fracture = or greater than 20% or a 10 year probability of a hip fracture = or greater than 3% should be considered for treatment. For further information, including treatment recommendations, please refer to the 2013 ISCD Official Positions (http://www.iscd.org) and the NOF's Clinician's Guide to Prevention and Treatment of Osteoporosis (http://www.nof.org/professionals/clinical-guidelines) THIS IS AN ELECTRONICALLY VERIFIED FINAL REPORT 09/01/2022 10:15 PM - Electronically signed by Amor Deleon M.D. MF: [email or web address] Report ID: [id number] Reading Location: [id number] Procedure Note Amor Deleon MD - 09/01/2022 EXAM DESCRIPTION: DEXA AXIAL SKELETON BONE DENSITY 1 OR MORE SITES REASON FOR STUDY: 86 y/o year old F with given history ofscreening. 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 FINDINGS: AP LUMBAR SPINE L1-L4: Total BMD is 0.955 g/cm2 T-score is -0.8 Dissimilar scan types or analysis methods precludes assessment for calculating a significant change. LEFT HIP: Total BMD is 0.818 g/cm2 T-score is -1.0 Dissimilar scan types or analysis methods precludes assessment for calculating a significant change. Femoral neck BMD is 0.669 g/cm2 T-score is -1.6 FRAX: FRAX tool cannot be utilized due to prior hip/vertebral fracture. IMPRESSION: Based on the left femoral neck bone mineral density (T-score -1.6 )the patient has low bone mass . REFERENCE: Bone mineral density: Normal (T-score above or = -1.0) Low bone mass (T-score between -1.0 and -2.5) replaces thepreviously used term osteopenia Osteoporosis (T-score = or below -2.5) Medical evaluation for secondary causes of low bone mineral density may be appropriate. FRAX is a World Health Organization validated fracture risk assessmenttool that calculates a person's 10 year probability of a major osteoporosisrelated fracture and hip fracture. According to the National OsteoporosisFoundation guidelines, postmenopausal women and men age 50 or older with low bonemass and a 10 year probability of a major osteoporosis related fracture = or greater than 20% or a 10 year probability of a hip fracture = or greaterthan 3% should be considered for treatment. For further information, including treatment recommendations, please referto the 2013 ISCD Official Positions (http://www.iscd.org) and the NOF's Clinician's Guide to Prevention and Treatment of Osteoporosis (http://www.nof.org/professionals/clinical-guidelines) THIS IS AN ELECTRONICALLY VERIFIED FINAL REPORT 09/01/2022 10:15 PM - Electronically signed by Amor Deleon M.D. MF: [email or web address] Report ID: [id number] Reading Location: [place] [address] Destiny Francois MD IMG DXA PROCEDURES Final Result * COLONOSCOPY (07/16/2010) Colonoscopy Abnormal Comment:Diverticulosis. Historical Provider HEALTH MAINTENANCE Final Result from Last 3 Months or Most Recently Relevant to Health Maintenance Additional Health Concerns Infection Onset Date Last Indicated MDR gram neg/ESBL Comment:ESBL E.coli urine 01/08/23 01/08/2023 01/08/2023 Insurance MEDICARE [place] [address] MEDICARE [facility] SENIOR SUPPLEMENT AETNA MEDICARE AETNA SENIOR SUPPLEMENT Advance Directives For more information, please contact: [phone] * Full Code (Latest Code Status on File) Date Activated Date Inactivated Comments 02/08/2019 7:45 AM 02/08/2019 2:06 PM * Full Code Date Activated Date Inactivated Comments 02/08/2019 7:44 AM 02/08/2019 7:45 AM Care Teams Utilities Operator Relationship Specialty Start Date End Date Makayla Corrigan NP [address] [place] [address] PCP - General Internal Medicine 09/28/24
--- OUTSIDE RECORDS SUMMARY | 2025-02-11 14:22 | XMS_ITS | Encounter Summary ---
Author Organization [facility] Address [address] [place] [address] Phone Care Team Providers Care Public Affairs Manager Name Role Phone Luther Pérez MD Primary Care Provider [phone] Reason for Visit * Reason Comments Medication Refill Encounter Details Date Type Department Care Team (Late st Contact Info) Description 10/12/2024 Refill [facility] - Family [facility] [address] [place] [address] Vic Finch MD [address] [place] [address] Medication Refill Social History Tobacco Use Types Packs/Day Years [...] on filedocumented in this encounter Care Teams Public Affairs Manager Relationship Specialty Start Date End Date Luther Pérez MD [address] [place] [address] PCP - General Internal Medicine 10/05/24 documented as of this encounter
--- OUTSIDE RECORDS SUMMARY | 2025-02-11 14:22 | XMS_ITS | Clinical Summary ---
Author Organization [facility] Address [address] [place] [address] Care Team Providers Care Dog Obedience Instructor Name Role Phone Luther Pérez MD Primary Care Provider [phone] Medications ALPRAZolam (XANAX) 0.25 MG Tablet Take 0.25 mg by mouth nightly as needed for Sleep. Active calcitRIOL (ROCALTROL) 0.5 MCG Capsule Take 0.5 mcg by mouth daily. 09/26/2024 Active cephALEXin (KEFLEX) 500 MG Capsule Take 500 mg by mouth 2 times daily. 09/26/2024 Active Cholecalciferol (D 5000) 125 mcg Capsule Take 1 Capsule by mouth daily. 10/15/2020 Active clobetasol (TEMOVATE) 0.05 % Ointment Apply 2 times daily. 02/11/2023 Active dicyclomine (BENTYL) 20 MG Tablet Take 20 mg by mouth every 6 hours. 05/24/2024 Active doxycycline hyclate (VIBRAMYCIN) 100 MG Capsule Take 100 mg by mouth 2 times daily. 10/03/2024 Active ergocalciferol (VITAMIN D) 18563 UNIT Capsule Take 1.25 mg by mouth once a week. Active escitalopram (LEXAPRO) 10 MG Tablet Take 10 mg by mouth daily. Active FeroSul 325 (65 Fe) MG Tablet Take 325 mg by mouth 2 times daily. 09/19/2024 Active furosemide (LASIX) 20 MG Tablet Take 20 mg by mouth every morning. 10/03/2024 Active lisinopril-hydro CHLOROthiazide (PRINZIDE, ZESTORETIC) 10-12.5 MG Tablet Take 1 Tablet by mouth daily. 09/14/2024 Active niacin 500 MG Capsule CR Take 500 mg by mouth daily. Active omeprazole (PriLOSEC) 40 MG CAPSULE DELAYED RELEASE Take 40 mg by mouth daily. 09/27/2024 Active ondansetron (ZOFRAN-ODT) 4 MG TABLET DISPERSIBLE Take 4 mg by mouth every 8 hours as needed for Nausea - 1st line. 09/04/2024 Active spironolactone (ALDACTONE) 25 MG Tablet Take 12.5 mg by mouth daily. 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 06/23/2019 Hiatal hernia 01/17/2019 Anxiety state 11/19/2013 Overview (10/27/2024): ANXIETY STATE NOS Benign hypertension 11/19/2013 Overview (10/27/2024): BENIGN HYPERTENSION Generalized osteoarthritis 11/19/2013 Overview (10/27/2024): GENERAL OSTEOARTHROSIS Vitamin D deficiency 11/19/2013 Overview (10/27/2024): VITAMIN D DEFICIENCY NOS Encounters Date Type Department Care Team Description 01/02/2025 Documentation Only [facility] [address], [address] [place] [address] Sandra Bazan, PT 12/26/2024 8:30 AM CDT Physical Therapy [facility] [address], [address] [place] [address] Makayla Corrigan, CONTACT LENS FITTER, POLYSOMNOGRAPHY TECHNOLOGIST Sandra Bazan, PT Lymphedema, not elsewhere classified (Primary Dx); Abnormal gait; Pain in both lower legs Discharge Disposition: Discharged to home or Selfcare 12/26/2024 Travel 12/13/2024 10:45 AM CDT Physical Therapy [facility] [address] [facility], [address] [address] Provider, Not On File Makayla Corrigan APRN, Sandra Greco, PT Lymphedema, not elsewhere classified (Primary Dx); Abnormal gait; Pain in both lower legs Discharge Disposition: Discharged to home or Selfcare 12/13/2024 Travel 12/05/2024 7:00 AM CDT Physical Therapy [facility] [address] [facility], [address] [address] Provider, Not On File Makayla Corrigan APRN, Sandra Greco, PT Abnormal gait (Primary Dx); Lymphedema, not elsewhere classified; Pain in both lower legs Discharge Disposition: Discharged to home or Selfcare 12/05/2024 Travel 11/23/2024 1:30 PM CDT Clinical Support [facility] [address] [place] [address] Luther Pérez MD Generalized osteoarthritis (Primary Dx) Discharge Disposition: Discharged to home or Selfcare 11/23/2024 Travel from Last 3 Months Social History Tobacco Use Types Packs/Day Years Used Date Smoking Tobacco: Never Assessed Comments Unknown Sex and Gender Information Value Date Recorded Sex Assigned at Not on file Legal Sex Female 2:39 PM CDT Gender Identity Not on file Sexual Orientation Not on file Last Filed Vital Signs Vital Sign Reading Time Taken Comments Blood Pressure 142/77 11/23/2024 1:39 PM CDT Pulse 92 11/23/2024 1:39 PM CDT Temperature 36 C (96.8 F) 11/23/2024 1:39 PM CDT Respiratory Rate 20 11/23/2024 1:39 PM CDT Oxygen Saturation 96% 11/23/2024 1:39 PM CDT Inhaled Oxygen Concentration - - Weight - - Height - - Body Mass Index - - Plan of Treatment Health Maintenance Due Date Last Done Comments Hepatitis C Virus (HCV) Screening 1935 TdaP Immunization 1935 Respiratory Syncytial Virus (RSV) Immunization (Adult) (-dose 75+ series) 09/08/2010 Zoster Immunization (2 of 3) 11/29/2012 10/04/2012 DEXA Bone Density 09/01/2024 09/01/2022, 08/31/2020 SARS-COV-2 Immunization ( season) 2024 04/09/2024, 04/23/2023, 05/01/2022, Additional history exists Influenza Immunization (#1) 03/06/202511/2023, 04/30/2023, 03/17/2022, Additional history exists DTaP/Tdap/Td Immunization Discontinued 06/06/2008 Pneumococcal Immunization (50+ years) Completed 05/03/2014, 10/04/2012 Hepatitis B Immunization Aged Out No longer eligible based on patient's age to complete this topic Human Papillomavirus (HPV) Immunization Aged Out No longer eligible based on patient's age to complete this topic Meningococcal Immunization (ACWY) Aged Out No longer eligible based on patient's age to complete this topic Rotavirus Immunization Aged Out No lo nger eligible based on patient's age to complete this topic Insurance MEDICARE [facility] Care Teams Dog Obedience Instructor Relationship Specialty Start Date End Date Luther Pérez MD [address] [place], [place] [id number] PCP - General Internal Medicine 10/05/24
--- OUTSIDE RECORDS SUMMARY | 2025-02-11 14:22 | XMS_ITS | Encounter Summary ---
Author Organization [facility] Healthcare Address [address] [place] [address] Care Team Providers Care Tannery Gummer Name Role Phone Makayla Corrigan NP Primary Care Provider [phone] Encounter Details Date Type Department Care Team (Late st Contact Info) Description 12/20/2024 Results Follow-Up [place] Director Acute at [address] [address] Lolita Quick NP [address] [place] [address] Pro B-type natriuretic peptide, Basic metabolic panel, eGFR Social History Tobacco Use Types Packs/Day Years Used Date Smoking Tobacco: Never Smokeless Tobacco: Never Alcohol Use Standard Drinks/Week Comments [...] making you feel afraid or unsafe? 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
--- OUTSIDE RECORDS SUMMARY | 2025-02-11 14:22 | XMS_ITS | Clinical Summary ---
Author Organization [facility] Address [address] [place] [address] Care Team Providers Care Licensed Optical Dispenser Name Role Phone Luther Pérez MD Primary Care Provider [phone] Source Comments [facility],non-owned Affiliates and Associated Physician Practices is amultiple site organization consisting of ambulatory clinics and hospital sitesin [place], [place], [place] and [place]. This disclosure is being madepursuant to the Care Everywhere program and may not contain all information available regarding this patient. Last updated 18.[facility] Allergies Active Allergy Reactions Criticality Noted Date Comments Gabapentin 04/29/2010 Medications * Be aware that medications may not be up to date on this document. Alwaysverify current medications with the patient. escitalopram (LEXAPRO) 10 MG tablet Take 10 mg by mouth daily. Active alprazolam (XANAX) 0.25 MG tablet Take 0.25 mg by mouth every 6 hours as needed. Active vitamin D, ergocalciferol, (DRISDOL) 18128 UNIT capsule Take 50,000 Units by mouth every 30 days. Active lisinopril-hydro chlorothiazide (PRINZIDE; ZESTORETIC) 20-12.5 MG tablet Take 1 Tab by mouth daily. Active fish oil/omega-3 fatty acids (OMEGA 3) 1000 MG capsule Take 1,000 mg by mouth 3 times daily with meals. Active Niacin 500 MG CPCR Take by mouth. 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 Gender Identity Not on file Sexual Orientation [...] 8:23 AM CDT Height 158.8 cm (5' 2.5) 04/03/2014 8:23 AM CDT Body Mass Index [...] VACCINE ( - 2023-2 5 season) 2024 DEPRESSION SCREENING 07/06/2024 INFLUENZA VACCINE (#1) 2025 HEPATITIS B VACCINE Aged Out No longe r eligible based on patient's age to complete this topic HIB VACCINE Aged Out No longer eligi ble based on patient's age to complete this topic HPV VACCINE Aged Out No longer eligi ble based on patient's age to complete this topic MENINGOCOCCAL (Group B) VACC INE SHARED DECISION-MAKING Aged Out No longer eligibl e based on patient's age to complete this topic MENINGOCOCCAL GROUPS A/C/Y/W VACCINE Aged Out No longer eligible b ased on patient's age to complete this topic Care Teams Licensed Optical Dispenser Relationship Specialty Start Date End Date Luther Pérez MD PCP - General 04/17/10
--- OUTSIDE RECORDS SUMMARY | 2025-02-11 14:22 | XMS_ITS | Encounter Summary ---
Author Organization [facility] Address [address] [address] Care Team Providers Care Preschool Substitute Teacher Name Role Phone Luther Pérez MD Primary Care Provider + Luther Pérez MD Primary Care Provider + Luther Pérez MD Primary Care Provider + Luther Pérez MD Primary Care Provider + Alonzo Francois MD Primary Care Provider [phone] Luther Pérez MD Primary Care Provider + Alonzo Francois MD Primary Care Provider [phone] Luther Pérez MD Primary Care Provider + Makayla Corrigan NP Primary Care Provider [phone] Encounter Details Date Type Department Care Team (Late st Contact Info) Description 07/16/2010 Orders Only [facility] Health Information Management [address] [place] [address] Scanning, Provider Social History Tobacco Use Types Packs/Day Years Used Date Smoking Tobacco: Never Assessed Comments Unknown Sex and Gender Information Value Date Recorded Sex Assigned at Not on file Legal Sex Female 5:14 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 Gender Identity Not on file Sexual Orientation [...] documented as of this encounter Care Teams Preschool Substitute Teacher Relationship Specialty Start Date End Date Luther Pérez MD [address] [place] [address] [place] [address] PCP - General 10/03/16 03/21/19 Luther Pérez MD [address] [place] [address] [place] [address] PCP - General 09/19/16 10/02/16 Luther Pérez MD [address] [place] [address] [place] [address] PCP - General 04/22/13 09/18/16 Luther Pérez MD [address] [place] [address] [place] [address] PCP - General 07/09/07 04/21/13 Alonzo Francois MD [address] [place] [address] PCP - General Family Medicine 03/22/19 08/22/22 Luther Pérez MD [address] [place] [address] [place] [address] PCP - General Internal Medicine 08/23/22 09/15/22 Alonzo Francois MD [address] [place] [address] PCP - General Family Medicine 09/16/22 05/19/24 Luther Pérez MD [facility] [facility] [address] PCP - General Internal Medicine 05/20/24 09/27/24 Makayla Corrigan NP [facility] [facility] [address] PCP - General Internal Medicine 09/28/24 documented as of this encounter
--- NOTE | 2025-02-11 14:39 | ED_ITS ---
HPI - Extremity Injury (Lower) General Chief Complaint: Extremity Injury, Lower Stated Complaint: Right foot / ankle injury Time Seen by Provider: 02/11/25 14:25 Source: patient Mode of arrival: ambulatory Limitations: no limitations History of Present Illness HPI Narrative: Karrie is an 89-year-old female patient presenting to the clinic today with complaints of right lower extremity swelling, redness, and pain. She reports she became confused on Thursday and fell and thinks she may have injured her right lower leg. Has history of pitting edema in is on a diuretic. States there was a lot of pain around her foot and ankle with edema and with redness extending up into her mid thigh. No fevers, chills, or body aches. She denies any shortness of breath or chest pain at this time. Related Data Home Medications ?Medication ?Instructions ?Recorded ?Confirmed ?Last Taken ?Type alprazolam 0.25 mg tablet 0.25 mg PO HS PRN Anxiety 05/21/21 05/21/21 Unknown History cholecalciferol (vitamin D3) 125 125 mcg PO DAILY 05/21/21 05/21/21 Unknown History mcg (5,000 unit) capsule duloxetine 30 mg capsule,delayed 30 mg PO DAILY 05/21/21 05/21/21 Unknown History release lisinopril 20 20 tablet PO DAILY 05/21/21 05/21/21 Unknown History mg-hydrochlorothiazide 12.5 mg tablet pravastatin 10 mg tablet 10 mg PO DAILY 05/21/21 05/21/21 Unknown History cyanocobalamin (vitamin B-12) mcg 09/04/24 Unknown History 1,000 mcg/mL injection solution omeprazole 40 mg capsule,delayed mg 09/04/24 Unknown History release Allergies Allergy/AdvReac Type Severity Reaction Status Date / Time No Known Allergies Allergy Verified 09/04/24 15:15 Review of Systems Review of Systems: Pertinent positives per HPI. Patient denies any fever, chills, rash, headache, visual changes, dizziness, cough, runny nose, sore throat, shortness of breath, chest pain, palpitations, nausea, vomiting, diarrhea, constipation, abdominal pain, or any urinary issues. [facility] Past Medical History Medical History Cataracts, bilateral Fibromyalgia GERD (gastroesophageal reflux disease) UTI (urinary tract infection) Hypertension Elevated serum cholesterol Surgical History Surgical History S/P foot surgery, right History of hysterectomy History of bladder surgery sling Family History Family History Father Lung cancer Sibling Lung cancer Mother Kidney failure Social History Social History Smoking status: Never smoker Alcohol intake: never Substance use: never Living arrangements: with family Gender identity (if verbalized by the patient): Female Comments At the time of my signature, I reviewed and agree with the nursing past medical, surgical, social, and family history. There is no relevant family history pertinent to the patient complaint. Exam Narrative: General: Well-developed, well nourished, in no apparent distress Head: Normocephalic, atraumatic. Cardio: Regular rate and rhythm, s1 and s2 normal, no murmur appreciated. Resp: Clear to auscultation bilaterally, no rhonchi, rales, wheezing or rubs. Musculoskeletal: No deformity, redness, erythema, and swelling the right lower extremity, 2+ pitting edema to the right lower extremity and 1+ pitting edema to the left lower extremity, tender to palpation over the right leg, redness is extending up into the right mid thigh, grossly normal range of motion, muscle strength strong and equal, peripheral pulse strong, no cyanosis, sitting in a wheelchair. Course Course Emergency Course: Portions of this record may have been created with voice recognition software. Level of Care: Express Care Visit Vital Signs Vital signs: Vital Signs Temperature 37.2 C 02/11/25 14:21 Pulse Rate 89 02/11/25 14:21 Respiratory Rate 16 02/11/25 14:21 Blood Pressure 107/40 L 02/11/25 14:21 Pulse Oximetry 96 02/11/25 14:21 Oxygen Delivery Room Air 02/11/25 14:21 Temperature 37.2 C 02/11/25 14:21 Pulse Rate 89 02/11/25 14:21 Respiratory Rate 16 02/11/25 14:21 Blood Pressure 107/40 L 02/11/25 14:21 Pulse Oximetry 96 02/11/25 14:21 Oxygen Delivery Room Air 02/11/25 14:21 Vital signs reviewed Transfer Transfered to: [facility] Transportation: Other (Private car) Transfer rationale: Right lower leg swelling/edema, redness, erythema r/o dvt vs cellulitis Accepting physician: Dr. Jara Transfer comments: private car MDM - Extremity Injury (Lower) MDM Narrative Medical decision making narrative: At the time of visit patient is resting comfortably on the exam table. Patient appears to be nontoxic. Complaints of right lower extremity swelling, redness, and pain. She reports she became confused on Thursday and fell and thinks she may have injured her right lower leg. Has history of pitting edema in is on a diuretic. States there was a lot of pain around her foot and ankle with edema and with redness extending up into her mid thigh. No fevers, chills, or body aches. She denies any shortness of breath or chest pain at this time. Plan: Patient has 2+ pitting edema in the right lower extremity with redness and erythema-redness is extending up into her mid thigh. Has had recent fall with some acute onset confusion. Differentials would include cellulitis/DVT. Recommend transfer to the emergency room for further evaluation. Patient would like to go to [facility] ER for evaluation. Contacted Helene TAMEZ at [facility] and they accept patient on behalf of Dr. Jara. Patient to be transferred via private car Differential Diagnosis Differential diagnosis: Likely ankle sprain and strain, ankle fracture and other (Cellulitis, DVT, lower extremity edema, foot fracture, foot sprain) Discharge Plan Discharge Clinical Impression: Pain and swelling of right lower extremity Patient Disposition: Acute Care Hospital Condition: Stable Patient Language: Uzbek Prescriptions: No Action alprazolam 0.25 mg tablet 0.25 mg PO HS PRN (Reason: Anxiety) lisinopril-hydrochlorothiazide 20-12.5 mg tablet 20 tablet PO DAILY pravastatin 10 mg tablet 10 mg PO DAILY cholecalciferol (vitamin D3) 125 mcg (5,000 unit) capsule 125 mcg PO DAILY duloxetine 30 mg capsule,delayed release(DR/EC) 30 mg PO DAILY (DME) Aerochamber MV Spacer See Rx Instructions .Route Qty: 1 0RF Rx Instructions: As directed albuterol sulfate 90 mcg/actuation HFA aerosol inhaler 2 puff inhalation QID PRN (Reason: shortness of breath or wheezing) Qty: 6.7 0RF omeprazole 40 mg capsule,delayed release(DR/EC) cyanocobalamin (vitamin B-12) 1,000 mcg/mL solution ondansetron 4 mg tablet,disintegrating 4 mg PO Q8H PRN (Reason: nausea and vomiting) Qty: 10 0RF Follow-up/Referrals: Beto,Bobby Davila MD [Primary Care Provider] - Time of Disposition: 14:55 Quality NIHSS Nursing Documentation ED NIHSS nursing documentation: reviewed/agree
== END 2025-02-11 14:54 | disposition short-term general hospital (02) ==
LOC: EXPBETH 14:24
PROVIDERS: Emergency Provider Nurse Practitioner Family; PCP Internal Medicine
DX: M79.661 Pain in right lower leg (principal); R22.41 Localized swelling, mass and lump, right lower limb; I10 Essential (primary) hypertension; K21.9 Gastro-esophageal reflux disease without esophagitis; M79.7 Fibromyalgia; H26.9 Unspecified cataract
CPT/HCPCS: 99212; G0463